=== PATIENT | female | born 1985 | race Caucasian/White ===

== ENCOUNTER 2020-03-16 16:53 | Emergency (ER) | payer OTHER, SELFPAY ==
[2020-03-16 16:56] VITALS: BP 143/87; PULSE 84; RESP 16; TEMP 36.9; O2SAT 98; BMI 45.7
--- NOTE | 2020-03-16 17:13 | W.ED.HA ---
HPI - Headache General: Chief Complaint: Headache Stated Complaint: BAGLEY Time Seen by Provider: 03/16/20 17:13 Source: patient Mode of arrival: ambulatory Limitations: no limitations History of Present Illness: HPI Narrative: Patient comes in today for complaints of headache starting yesterday. Patient reports that she has a history of migraines and has had treatment at home with sumatriptan. Patient reports this morning she felt a little better and thought she may be improving and went to take a shower then suddenly has recurrence of the headache with nausea and dizziness. Symptoms have improved but patient continues to have headache at this time. Patient takes topiramate for prophylaxis. Patient has sumatriptan and promethazine for abortive therapy. Patient also takes routinely medications omeprazole and citalopram. Patient appears well. Patient appears in mild to moderate discomfort. MD elicited complaint: migraine Pertinent past history: migraines Onset (ago): day(s) Onset description: suddenly Location: retro-orbital Severity: moderate Quality & Timing: squeezing Exacerbating factors: light Relieving factors: nothing Context: occurred at rest Associated symptoms: Reports nausea Review of Systems General: Reports: 10 or more systems reviewed and unremarkable except in HPI and below GI: Reports: nausea Neuro: Reports: headache PFSH ED PFSH: Social History Smoking and tobacco status: never smoked Female Reproductive History: Date of last menstrual period: 03/15/20 Physical Exam Const: COMMON NORMALS: no apparent distress and oriented x3 GENERAL APPEARANCE: cooperative HENMT: COMMON NORMALS: normocephalic, TM's normal bilaterally and external nose normal HEAD & SCALP: normal to inspection and normocephalic NOSE: external nose normal TYMPANIC MEMBRANE: TM's normal bilaterally MOUTH: oral and palatal mucosa normal THROAT: posterior oropharynx normal Eye: GENERAL EYE: normal appearance of both eyes Neck/C-Spine: COMMON NORMALS: full ROM (no nuchal rigidity) Lymph: LYMPHATIC: no lymphadenopathy noted Chest: COMMONS NORMALS: inspection of chest normal Resp: COMMON NORMALS: normal respiratory effort EFFORT & INSPECTION: Yes able to speak in complete sentences Cardio: COMMON NORMALS: regular rate and regular rhythm RATE: regular rate RHYTHM: regular rhythm GI: COMMON NORMALS: non-tender : COMMON NORMALS: Yes no CVA tenderness BLADDER/KIDNEY EXAM: Yes no CVA tenderness Back/Pelvis: COMMON NORMALS: no CVA tenderness and thoracic and lumbar spine normal to inspection Extremity: COMMON NORMALS: normal to inspection Neuro: COMMON NORMALS: oriented x3 and moves all extremities Psych: COMMON NORMALS: mental status grossly normal and cooperative Skin: COMMON NORMALS: no rashes or lesions noted GENERAL SKIN EXAM: no rashes or lesions noted Course Vital Signs: Vital signs: Vital Signs Temperature 98.4 F 03/16/20 16:56 Pulse Rate 84 03/16/20 16:56 Respiratory Rate 16 03/16/20 16:56 Blood Pressure 143/87 03/16/20 16:56 Pulse Oximetry 98 03/16/20 16:56 MDM - Headache MDM Narrative: Medical decision making narrative: Patient comes in today with complaints of headache. Patient reports that headache started yesterday and she has been unable to get control of the home with her routine therapies. Exam notes no focal neural deficits. No nuchal rigidity. Respirations are even lungs are clear to auscultation. Vital signs are normal. Differential diagnosis includes but not limited to migraine headache, tension headache, malingering. Patient was treated in the emergency department with 1 L of IV fluids, 10 mg of Reglan, 15 mg ketorolac, 25 mg diphenhydramine, and 10 mg of dexamethasone. Patient had resolution of headache. Reviewed post treatment care and recommendations for follow-up. Patient reported understanding agreed to plan. Discharge Plan Discharge Patient Disposition: Home, Self-Care Clinical Impression: Migraine Qualifiers: Migraine type: unspecified Status migrainosus presence: without status migrainosus Intractability: not intractable Qualified Code(s): G43.909 - Migraine, unspecified, not intractable, without status migrainosus Condition: Stable Prescriptions: No Action sumatriptan succinate 50 mg tablet 50 mg PO PRN RF: 0 Celexa 20 mg Tablet 20 mg PO DAILY RF: 0 promethazine 25 mg tablet 25 mg PO PRN RF: 0 norethindrone (contraceptive) 0.35 mg tablet 0.35 mg PO DAILY RF: 0 Topamax 100 mg Tablet 100 mg PO BID RF: 0 Prilosec OTC 20 mg Tablet,Delayed Release (Dr/Ec) 40 mg PO DAILY RF: 0 Discharge Orders: Discharge Order (Routine); Ordered 03/16/20 Ordered By: Leno Bustamante Referrals: Ashly Campbell MD [Family Provider] - Discharge Diet: Usual diet Discharge Activity: Increase activity as tolerated Patient Instructions: Acute Headache (ED) Activity Restrictions/Additional Instructions: Home and rest. Continue routine medications as directed. Follow-up with primary care regarding other abortive therapies. Drink plenty of water and return to the ER as needed. Coding Level of Care Code ED Special Education Paraeducator for Reema Fwd Exam Comprehensive
[2020-03-16] MEDS: metoclopramide 5 mg/mL SDV 2 mL 10 MG IVP (17:42)
[2020-03-16] MEDS: ketorolac 30 mg/mL INJ 15 MG IVP (17:43)
[2020-03-16] MEDS: dexamethasone 10 mg/mL INJ IVP (17:44)
[2020-03-16] MEDS: diphenhydrAMINE 50 mg/mL SDV 1mL 25 MG IVP (17:44)
[2020-03-16] MEDS: sodium chloride 0.9% 1,000 ML 999 ML IV (17:45)
[2020-03-16 19:08] VITALS: BP 125/85; PULSE 75; RESP 16; O2SAT 98
== END 2020-03-16 19:08 | disposition home or self-care (01) ==
PROVIDERS: Emergency Provider Nurse Practitioner Family; Family Provider Family Medicine
DX: G43.909 Migraine, unspecified, not intractable, without status migrainosus (principal)
CPT/HCPCS: 12345; 96361; 96374; 96375; 99282; 99284; J1100; J1200; J1885; J2765; J7030

== ENCOUNTER 2021-04-15 17:33 | Outpatient (CLI) | payer OTHER, SELFPAY | END 2021-04-15 17:34 | disposition home or self-care (01) | LOC: SPT 17:34 | PROVIDERS: Family Provider Family Medicine; PCP Family Medicine; Visit Provider Orthopaedic Surgery | DX: Z46.89 Encounter for fitting and adjustment of other specified devices (principal); S62.621D Displaced fracture of middle phalanx of left index finger, subsequent encounter for fracture with routine healing; S63.92XD Sprain of unspecified part of left wrist and hand, subsequent encounter; X58.XXXD Exposure to other specified factors, subsequent encounter | CPT/HCPCS: 97760; L3984 ==

== ENCOUNTER 2021-05-04 19:46 | Emergency (ER) | payer OTHER, SELFPAY ==
[2021-05-04 19:49] VITALS: BP 107/69; RESP 18; TEMP 37.2; O2SAT 97; BMI 47.2
--- NOTE | 2021-05-04 20:11 | CTR_ITS ---
PROCEDURE INFORMATION: Exam: CT Abdomen And Pelvis With Contrast Exam date and time: 05/04/2021 8:11 PM Age: 35 years old Clinical indication: Abdominal pain; Localized; Right lower quadrant (rlq); Patient HX: Rlq pain TECHNIQUE: Imaging protocol: Computed tomography of the abdomen and pelvis with contrast. Radiation optimization: All CT scans at this facility use at least one of these dose optimization techniques: automated exposure control; mA and/or kV adjustment per patient size (includes targeted exams where dose is matched to clinical indication); or iterative reconstruction. Contrast material: OMNI 300; Contrast volume: 95 ml; Contrast route: INTRAVENOUS (IV); COMPARISON: No relevant prior studies available. RADIATION DOSE METRICS: Total DLP (mGy-cm): 1857.51 FINDINGS: Mediastinal space: A small hiatal hernia is present. Liver: The liver measures 21.8 cm in length. The liver is homogeneous in density. Gallbladder and bile ducts: Normal. No calcified stones. No ductal dilation. Pancreas: Normal. No ductal dilation. Spleen: Normal. No splenomegaly. Adrenal glands: Normal. No mass. Kidneys and ureters: There is no evidence of hydronephrosis. There is no evidence of renal calcifications. No calculi are identified in the ureters or bladder. Stomach and bowel: There is moderately excessive colonic stool content. There is no evidence of intestinal perforation or obstruction. There is no evidence of colitis/diverticulitis. Appendix: A normal appendix is identified. Intraperitoneal space: Unremarkable. No free air. No significant fluid collection. Vasculature: Multiple phleboliths are noted in the pelvis. Some of the phleboliths are very close to the distal ureters. The aorta is normal. Lymph nodes: Unremarkable.No enlarged lymph nodes. Urinary bladder: There is nonspecific bladder wall thickening. This may be related to incomplete distention. Reproductive: There is a 1.8 cm collapsing right ovarian cyst. Uterus and left ovary are unremarkable. Bones/joints: Unremarkable. No acute fracture. Soft tissues: There is a fat-containing umbilical hernia. CT/CT abdomen pelvis w con* [id number] IMPRESSION: 1. There is a 1.8 cm collapsing right ovarian cyst. 2. No additional acute abnormality. No obstructing calculi or hydronephrosis. No bowel thickening or inflammatory changes. Incidental multiple phleboliths in the pelvis. Radiation Dose CTDIVOL = (mGy): DLP = 1857.51 (mGy-cm)
--- NOTE | 2021-05-04 20:12 | ED_ITS ---
HPI - Abdominal Pain General: Chief Complaint: Abdominal Pain Stated Complaint: RLQ pain Time Seen by Provider: 05/04/21 20:11 History of Present Illness: HPI narrative: Patient comes in for right lower quadrant abdominal pain x1 week. Patient reports movement aggravates the pain. Patient denies any fever. Patient reports no nausea vomiting or diarrhea. Laboratory values at [facility] were negative. Urinalysis did not show any blood or . Patient appears in mild to moderate pain. Patient is guarded and right lower quadrant. Related Data: Date of Last Menstrual Period: 03/15/20 Review of Systems General: Reports: 10 or more systems reviewed and unremarkable except in HPI and below GI: Reports: abdominal pain PFSH ED PFSH: Social History Smoking and tobacco status: never smoked Female Reproductive History: Date of last menstrual period: 03/15/20 Physical Exam Const: COMMON NORMALS: no acute distress and patient oriented x3 GENERAL APPEARANCE: cooperative HENMT: COMMON NORMALS: normocephalic, TM's normal bilaterally and Normal external nose present HEAD & SCALP: normal to inspection and normocephalic NOSE: Normal external nose present TYMPANIC MEMBRANE: TM's normal bilaterally MOUTH: Normal oral and palatal mucosa present THROAT: posterior oropharynx normal Eye: GENERAL EYE: appearance normal, both eyes and all related structures Neck/C-Spine: COMMON NORMALS: full ROM Lymph: LYMPHATIC: no lymphadenopathy noted Chest: COMMONS NORMALS: normal inspection of the chest Resp: COMMON NORMALS: normal respiratory effort EFFORT & INSPECTION: Yes able to speak in complete sentences Cardio: COMMON NORMALS: regular rate and regular rhythm RATE: regular rate RHYTHM: regular rhythm GI: COMMON NORMALS: Soft to palpation AUSCULTATION: Yes normoactive bowel sounds PALPATION: Yes Soft to palpation and Yes Tenderness to palpation present (GI) Details: RLQ : COMMON NORMALS: Yes no CVA tenderness BLADDER/KIDNEY EXAM: Yes no CVA tenderness Back/Pelvis: COMMON NORMALS: no CVA tenderness and thoracic and lumbar spine normal to inspection Extremity: COMMON NORMALS: normal to inspection Neuro: COMMON NORMALS: patient oriented x3 and moves all extremities Psych: COMMON NORMALS: mental status grossly normal and cooperative Skin: COMMON NORMALS: no rashes or lesions noted GENERAL SKIN EXAM: no rashes or lesions noted Course Vital Signs: Vital signs: Vital Signs Temperature 98.9 F 05/04/21 19:49 Pulse Rate 61 05/04/21 20:58 Respiratory Rate 18 05/04/21 20:58 Blood Pressure 113/79 05/04/21 20:58 Pulse Oximetry 98 05/04/21 20:58 MDM - Abdominal Pain MDM Narrative: Medical decision making narrative: Patient comes in for abdominal pain. Patient reports increased pain and discomfort over the last week in the right lower quadrant. Patient reports that nothing improves the pain. Exam notes tenderness in the right lower quadrant. Bowel sounds are present. Vital signs are normal. Differential diagnosis includes but not limit ed to appendicitis, urinary tract infection, ovarian cyst, renal calculi. CT noted a 1.8 cm ovarian cysts that is collapsing. No other signs of acute illness was noted. Urinalysis was clear. Negative test. Feel the patient probably has a resolving ovarian cyst that has probably ruptured and causing some pain in the pelvic area. Semiconductor Packages Sealer's medication to help with pain encourage plenty of fluids and follow-up with primary care for further instruction. Patient reported understanding. Lab Data: Labs: Lab Results 05/04/21 05/04/21 Range/Units 20:54 20:54 Urine Color Yellow (Yellow) Urine Appearance Cloudy (CLEAR) Urine pH 7 (5-7) Ur Specific Gravit y 1.015 (1.005-1.030) Urine Protein Neg (Negative) Urine Glucose (UA) Norm (Normal) Urine Ketones Negative (Negative) Urine Blood Neg (Negative) Urine Nitrate Negative (Negative) Urine Bilirubin Neg (Negative) Urine Urobilinogen Norm (Negative) mg/dL Ur Leukocyte Cecelia ase Negative (Negative) Urine RBC 0-4 H (0-2) /hpf Urine WBC None (0-5) /hpf Ur Squamous Epith Cells 5-10 H (0-5) /hpf Amorphous Sediment 3+ /hpf Urine Bacteria 1+ H (NONE) /hpf Urine HCG, Qual Negative (Negative) Discharge Plan Discharge Patient Disposition: Home Clinical Impression: Ovarian cyst Qualifiers: Laterality: right Qualified Code(s): N83.201 - Unspecified ovarian cyst, right side Condition: Stable Prescriptions: New hydrocodone-acetaminophen 5-325 mg tablet 1 tab PO Q6H PRN (Reason: pain (scale score 7-10)) Qty: 7 RF: 0 No Action (DME) Fast Form radial gutter splint See Rx Instructions .ROUTE .MEDSUPPLY Qty: 1 RF: 0 sumatriptan succinate 50 mg tablet 50 mg PO PRN RF: 0 Celexa 20 mg Tablet 20 mg PO DAILY RF: 0 promethazine 25 mg tablet 25 mg PO PRN RF: 0 norethindrone (contraceptive) 0.35 mg tablet 0.35 mg PO DAILY RF: 0 Topamax 100 mg Tablet 100 mg PO BID RF: 0 Prilosec OTC 20 mg Tablet,Delayed Release (Dr/Ec) 40 mg PO DAILY RF: 0 Discharge Orders: Discharge ED (Routine); Ordered 05/04/21 Ordered By: Leno Bustamante Referrals: Ashly Campbell MD [Primary Care Provider] - Discharge Diet: Usual diet Discharge Activity: Increase activity as tolerated Patient Instructions: Ovarian Cyst (ED), Opioid Safety Activity Restrictions/Additional Instructions: You have a 1.8 cm ovarian cyst that is collapsing. This often will cause pelvic pain. Sometimes it will cause referred pain up into the abdomen. The remainder of your CT scan was normal. And the rest of your labs were normal. I would recommend you drink plenty of water and plenty of fluids. Use acetaminophen and ibuprofen to control pain. Use hydrocodone for breakthrough pain. Follow-up with primary care or HOMEOWNER ASSOCIATION MANAGER for further evaluation and consideration of other treatment. Coding Level of Care Code ED Chlorine Cell Tender for Naig Fwd Exam Comprehensive
[2021-05-04 20:58] VITALS: BP 113/79; PULSE 61; RESP 18; O2SAT 98
[2021-05-04] MEDS: sodium chloride 0.9% 500 ML 999 ML IV (21:03)
[2021-05-04] MEDS: iohexol 300 mg/mL 100 mL Btl IV (21:08)
[2021-05-04 22:09] LABS: Add Urine Microscopic? YES; Bilirubin Urine Neg (Negative); Blood Urine Neg (Negative); Glucose Urine UA Norm (Normal); Ketones Urine Negative (Negative); Leukocyte Esterase Urine Negative (Negative); Nitrate Urine Negative (Negative); Protein Urine Neg (Negative); Specific Gravity, Urine 1.015 (1.005-1.030); Urine Appearance Cloudy (CLEAR); Urine Color Yellow (Yellow); Urobilinogen Urine Norm (Negative); pH Urine 7 (5-7)
[2021-05-04 22:12] LABS: Add Urine Culture? No; Amorphous Sediment Urine 3+ /hpf; Bacteria Urine 1+ /hpf; RBC Urine 0-4 /hpf (0-2)
[2021-05-04] MEDS: HYDROcodone-acetaminophen 5-325 mg Tablet 1 TAB PO (22:25)
== END 2021-05-04 22:41 | disposition home or self-care (01) ==
PROVIDERS: Emergency Provider Nurse Practitioner Family; PCP Family Medicine
DX: N83.201 Unspecified ovarian cyst, right side (principal)
CPT/HCPCS: 36415; 74177; 80053; 81001; 81025; 83690; 84703; 85025; 99283; J7040; Q9967

== ENCOUNTER → 2022-11-19 14:01 | Outpatient (BNVA) | payer OTHER, SELFPAY | PROVIDERS: PCP Family Medicine; Visit Provider Family Medicine | DX: Z76.89 Persons encountering health services in other specified circumstances (principal); G62.9 Polyneuropathy, unspecified; H53.139 Sudden visual loss, unspecified eye | CPT/HCPCS: 85025 ==

== ENCOUNTER → 2022-11-23 12:11 | Outpatient (BNVA) | payer OTHER, SELFPAY | PROVIDERS: PCP Family Medicine; Visit Provider Family Medicine | DX: Z76.89 Persons encountering health services in other specified circumstances (principal); G62.9 Polyneuropathy, unspecified; H53.139 Sudden visual loss, unspecified eye; G43.709 Chronic migraine without aura, not intractable, without status migrainosus | CPT/HCPCS: 85025 ==

== ENCOUNTER 2023-01-14 16:05 | Outpatient (CLI) | payer OTHER, SELFPAY ==
--- NOTE | 2023-01-14 16:00 | MR_ITS ---
WS: [id number] MRI BRAIN WITH AND WITHOUT CONTRAST HISTORY: Vision loss, polyneuropathy COMPARISON: None available. TECHNIQUE: Multiplanar imaging performed through the brain with MultiHance 20 ml's IV. No acute infarcts are seen. Fernandez-white matter differentiation is well preserved. No infarct or small vessel ischemic disease. No susceptibility artifacts or prior lacunar infarcts. Ventricles and extra-axial spaces are normal. Clivus and pituitary gland are normal. Visualized posterior fossa and brainstem are also normal. Postcontrast images are negative for masses or vascular malformations. Dural venous sinuses are normal. Paranasal sinuses: Well aerated with no significant disease. Mastoid air cells: Normal. Calvarium and scalp: Normal. MR/MR head wo/w con [id number] IMPRESSION: 1. Normal MRI brain with contrast. 2. No small vessel ischemic disease or demyelination. No mass or infarct.
[2023-01-14] MEDS: gadobenate dimeglumine 20 mL vial IV (16:44)
== END 2023-01-14 16:06 | disposition home or self-care (01) ==
LOC: RAD 16:08
PROVIDERS: PCP Family Medicine; Visit Provider Family Medicine
DX: G62.9 Polyneuropathy, unspecified (principal); H53.139 Sudden visual loss, unspecified eye
CPT/HCPCS: 70553; A9577

== ENCOUNTER 2023-05-16 20:00 | Outpatient (CLI) | payer OTHER, SELFPAY | END 2023-05-16 20:01 | disposition home or self-care (01) | LOC: SLEEP 05-17 05:34 | PROVIDERS: PCP Family Medicine; Visit Provider Family Medicine | DX: G47.33 Obstructive sleep apnea (adult) (pediatric) (principal); G47.52 REM sleep behavior disorder; G47.00 Insomnia, unspecified; R40.0 Somnolence | CPT/HCPCS: 95810 ==

== ENCOUNTER 2024-01-16 15:13 | Outpatient (CLI) | payer OTHER, SELFPAY ==
--- NOTE | 2024-01-16 15:28 | MM_ITS ---
WS: [id number] VIEWS: MLO and CC views both breasts. 3D digital tomosynthesis is also included in this exam. No priors.. Findings: There was no sign of mass, architectural distortion or suspicious calcification in either breast. The re are scattered areas of fibroglandular density Impression: MM/[place] [id number] BI-RADS: 1-Negative FOLLOW-UP: 1 Year Follow-up This mammogram was also analyzed by the Computer Aided Detection System R2 Imag e Flight Software Test Engineer.
== END 2024-01-16 15:14 | disposition home or self-care (01) ==
LOC: RAD 15:14
PROVIDERS: PCP Family Medicine; Visit Provider Family Medicine
DX: Z12.31 Encounter for screening mammogram for malignant neoplasm of breast (principal); R92.323 Mammographic fibroglandular density, bilateral breasts
CPT/HCPCS: 77063; 77067

== ENCOUNTER 2024-05-27 11:24 | Inpatient (IN) | payer OTHER, SELFPAY ==
[2024-05-27] VITALS (7 sets, daily range): BP systolic 95–138; BP diastolic 61–88; PULSE 44–64; RESP 13–19; TEMP 36.4–36.6; O2SAT 97–100; BMI 33.8
--- NOTE | 2024-05-27 11:51 | XRR_ITS ---
PROCEDURE INFORMATION: Exam: XR Abdomen Exam date and time: 05/27/2024 12:01 PM Age: 38 years old Clinical indication: Abdominal pain; Generalized TECHNIQUE: Imaging protocol: Radiologic exam of the abdomen. Views: 2 Views. Upright and supine views. COMPARISON: CR XR KUB [id number] 04/26/2023 2:01 PM FINDINGS: Gastrointestinal tract: Normal. No bowel dilation. Intraperitoneal space: Normal. No free air. Bones/joints: Unremarkable for age. XR/XR acute abdomen series [id number] IMPRESSION: No acute findings.
[2024-05-27 12:12] LABS: Eosinophils # 0.1 10^3/uL (0.0-0.8); Eosinophils % 2.9 %; Hematocrit 43.6 % (36-47); Lymphocytes # 0.9 10^3/uL (0.8-4.8); Lymphocytes % 28.8 %; Mean Corpuscular HGB Conc 35.3 g/dL (30-55); Mean Corpuscular Hemoglobin 29.1 pg (27-33); Mean Corpuscular Volume 82.4 fl (85-98); Mean Platelet Volume 11.5 fL (7.4-10.4); Monocytes # 0.4 10^3/uL (0.2-0.9); Monocytes % 12.9 %; Neutrophils # 1.68 10^3/uL (1.8-7.7); Neutrophils % 54.4 %; Nucleated Red Blood Cells % 0 %; Platelet Count 197 10^3/cmm (157-399); Red Blood Count 5.29 10^6/uL (3.85-5.65); Red Cell Distribution Width 17.6 % (12.1-15.1); White Blood Count 3.09 10^3/uL (3.29-11.43)
[2024-05-27] MEDS: sodium chloride 0.9% 1,000 ML 999 ML IV ×2 (12:13→13:46)
[2024-05-27] MEDS: ondansetron 2 mg/ML SDV 2 mL 4 MG IVP ×2 (12:16→22:26)
[2024-05-27 12:22] LABS: Alanine Aminotransferase 30 U/L (0-33); Albumin Level 3.9 g/dL (3.5-5.2); Alkaline Phosphatase 45 U/L (35-105); Anion Gap 24.1 (5-19); Aspartate Amino Transferase 38 U/L (0-32); Blood Urea Nitrogen 6 mg/dL (6-20); Calcium 8.6 mg/dL (8.5-10.5); Carbon Dioxide 25 mmol/L (22-29); Chloride 92 mmol/L (98-107); Creatinine Clr Calc Pharmacy 93.0892; Globulin 2.7 g/dL (1.3-4.6); Glomerular Filtration Rate 79.4 mL/min (90-130); Glucose 83 mg/dL (65-115); Osmolality Calculated 285 mOsm/kg (285-295); Sodium 139 mmol/L (136-145); Total Bilirubin 0.5 mg/dL (0.15-1.2); Total Protein 6.6 g/dL (6.6-8.7)
--- NOTE | 2024-05-27 12:27 | ECG_ITS ---
[facility] Test Date: 2024-05-27 Pat Name: Talisha Medeiros Department: Room: Gender: Female Measurement Psychologist: : 1985 Requested By: Connie Robert Order Number: [id number] Ananya MD: Randy Neal M.D. Measurements Intervals [place] Rate: 48 P: 55 OH: 137 QRS: 48 QRSD: 102 T: 54 QT: 465 QTc: 420 Interpretive Statements SINUS BRADYCARDIA NONSPECIFIC T-WAVE ABNORMALITY No previous ECG available for comparison Electronically Signed On 05-27-2024 19:19:38 CDT by Randy Neal M.D. [id number]
[2024-05-27 12:28] LABS: Potassium 2.1 mmol/L (3.5-5.1)
--- NOTE | 2024-05-27 12:34 | CTR_ITS ---
PROCEDURE INFORMATION: Exam: CT Abdomen And Pelvis With Contrast Exam date and time: 05/27/2024 1:08 PM Age: 38 years old Clinical indication: Vomiting; Prior surgery; Surgery date: 1-6 months; Surgery type: Gastric sleeve 4 months ago hernia; Additional info: Vomiting, history of gastric sleeve TECHNIQUE: Imaging protocol: Computed tomography of the abdomen and pelvis with contrast. Radiation optimization: All CT scans at this facility use at least one of these dose optimization techniques: automated exposure control; mA and/or kV adjustment per patient size (includes targeted exams where dose is matched to clinical indication); or iterative reconstruction. Contrast material: OMNI 350; Contrast volume: 100 ml; Contrast route: INTRAVENOUS (IV); COMPARISON: CT abdomen pelvis w con* [id number] 05/04/2021 9:05 PM RADIATION DOSE METRICS: Total DLP (mGy-cm): 836.64 FINDINGS: Lungs: Lung bases are clear as visulized. Liver: Fatty infiltration suspected. Focal hypodensity in left lobe adjacent to falciform ligament fissure is likely from focal increased fatty infiltration compared to adjacent liver parenchyma. No discrete mass identified. Gallbladder and biliary ducts: Minimally distended gallbladder. No wall thickening or pericholecystic edema. No biliary ductal dilatation. No calcified gallstones. Pancreas: Normal. No ductal dilation. Spleen: Normal. No splenomegaly. Adrenal glands: Normal. Kidneys and ureters: Normal. No hydronephrosis. Stomach and bowel: Postop changes of the stomach noted. Postop changes of jejunal loops in left abdomen suspected. No obstruction or acute inflammation. Appendix: Not identified. Intraperitoneal space: Unremarkable. No free air. No significant fluid collection. Vasculature: No abdominal aortic aneurysm. Lymph nodes: No enlarged lymph nodes. Urinary bladder: Unremarkable as visualized. Reproductive: Unremarkable as visualized. Bones/joints: No acute fracture. Soft tissues: Unremarkable. CT/CT abdomen pelvis w con* [id number] IMPRESSION: No acute findings.
--- NOTE | 2024-05-27 12:34 | ED_ITS ---
HPI - Nausea/Vomiting/Diarrhea 2 General: Chief complaint: Nausea/Vomiting/Diarrhea Stated complaint: trouble eating or drinking Time Seen by Provider: 05/27/24 11:50 History of Present Illness: 38-year-old female with a history of obe sity and gastric bypass that she had done in [place] about 4 months ago who presents emergency room with nausea vomiting and weakness. Says this has been kind of off and on since the surgery but much worse over the last 3 to 4 weeks. She says she feels very fatigued with nothing focal. Says she just been having trouble keeping foods down. She came to emergency room because she was concerned she might be dehydrated. No focal abdominal pain. No diarrhea. No altered mental status. No fevers. Review of Systems 2 Narrative: Constitutional symptoms: Negative except as documented in HPI. Skin symptoms: Negative except as documented in HPI. Eye symptoms: Negative except as documented in HPI. ENMT symptoms: Negative except as documented in HPI. Respiratory symptoms: Negative except as documented in HPI. Cardiovascular symptoms: Negative except as documented in HPI. Gastrointestinal symptoms: Negative except as documented in HPI. Genitourinary symptoms: Negative except as documented in HPI. Musculoskeletal symptoms: Negative except as documented in HPI. Neurologic symptoms: Negative except as documented in HPI. Psychiatric symptoms: Negative except as documented in HPI. Endocrine symptoms: Negative except as documented in HPI. PFSH ED 2 PFSH: Social History Smoking and tobacco/nicotine status: never used tobacco/nicotine Alcohol intake: current Alcohol intake frequency: holidays/special occasions only Substance/Drug Use: never Adopted: No Caregiver/support person: No Lives independently: No Household members: spouse Housing: House Marital status: Number of children: 2 Highest education level completed: Associate Degree: Occupational, Technical, Vocational Program service: No Current occupational status: employed Current occupational exposures/hazards: No Pets and animals: No Sexually active: Yes Do you think of yourself as: Straight/Heterosexual Current gender identity: Female Physical Exam 2 Narrative: EXAM NARRATIVE: General: Alert, no acute distress. Skin: Warm, dry. Head: Normocephalic, atraumatic. Neck: Supple, trachea midline. Eye: Extraocular movements are intact. Ears, nose, mouth and throat: Dry oral mucosa Cardiovascular: Regular, bradycardic, normal peripheral perfusion. Respiratory: Lungs are clear to auscultation, respirations are non-labored, breath sounds are equal, Symmetrical chest wall expansion. Gastrointestinal: Soft, Nontender, Non distended Musculoskeletal: Normal ROM, no deformity. Neurological: Alert and oriented, No focal neurological deficit observed. Psychiatric: Cooperative, appropriate mood & affect. Course 2 Vital Signs: Vital signs: Vital Signs Temperature 97.6 F 05/27/24 11:37 Pulse Rate 54 L 05/27/24 14:00 Respiratory Rate 17 05/27/24 14:00 Blood Pressure 110/61 05/27/24 14:00 Pulse Oximetry 98 05/27/24 14:00 Oxygen Delivery Me thod Room Air 05/27/24 13:00 MDM - Nausea/Vomiting/Diarrhea Medical Decision Making Medical decision making: Differential diagnosis for this patient with nausea and vomiting including but not limited to and based on the above HPI, review of systems and physical exam: Urinary tract infection. Appendicitis. Cholecystis. colitis. small bowel obstruction. crohn's flare. pancreatitis. gastritis. peptic ulcer. cyclic vomiting. Viral illness. Influenza. COVID. - Workup - labwork and imaging ordered to evaluate, rule in and rule out above pathologies. EKG: Time 12:35 PM. Rate 48. Sinus bradycardia, No ST-T changes, no ectopy, normal [place] & QRS intervals, This was reviewed and interpreted by myself the ER physician at 12:40 PM. Lab Review: Laboratory results were reviewed and interpreted by myself the emergency room physician. Some leukopenia. No anemia. BUN and creatinine are normal at 6 and 0.8. Her potassium is a significantly low at 2.1. Urine concentrated with ketones which would indicate dehydration. Also a few whites on giving some Rocephin for possible UTI. CT of the abdomen pelvis with contrast: No obvious acute abnormalities. Postop changes are noted at the stomach with no signs of obstruction or inflammation. Gallbladder is mildly distended with no signs of infection. This was reviewed and interpreted by myself the emergency room physician. I also reviewed the radiology report. Consultation: I spoke with Dr. Rodriguez with the hospitalist service. He agrees to admission for further hydration and repeat potassium levels. I reviewed the patient's medical record. Reexamination: Patient remained stable. No altered mental status. No focal motor deficits. She says she feels a little bit better after fluids. No increased work of breathing. She still a little bit bradycardic. Assessment and plan: Hypokalemia Nausea and vomiting Dehydration Urinary tract infection -80 mill equivalents IV potassium and 40 mill equivalents oral. 2 g IV magnesium -IV Pepcid ?IV Zofran ? 2 L normal saline bolus. -IV Rocephin for probable early urinary tract infection -I discussed the patient with the hospitalist on-call who is admitting the patient. - Discussed findings and plan with patient. Answered any questions. - All laboratory values were reviewed and interpreted personally by myself, the ER physician - All imaging was reviewed and interpreted personally by myself, the ER physician. - Evaluation and treatment of this problem were appropriate in the emergency setting Lab Data 05/27/24 11:59 05/27/24 11:59 Radiology Impressions Chest/Abdomen X-ray 05/27/24 11:51 IMPRESSION: No acute findings. Abdomen/Pelvis CT 05/27/24 12:34 IMPRESSION: No acute findings. Laboratory Results WBC 3.09 10^3/uL (3.29-11.43) L 05/27/24 11:59 RBC 5.29 10^6/uL (3.85-5.65) 05/27/24 11:59 Hgb 15.40 g/dL (11.27-16.99) 05/27/24 11:59 Hct 43.6 % (36-47) 05/27/24 11:59 MCV 82.4 fl (85-98) L 05/27/24 11:59 MCH 29.1 pg (27-33) 05/27/24 11:59 MCHC 35.3 g/dL (30-55) 05/27/24 11:59 RDW 17.6 % (12.1-15.1) H 05/27/24 11:59 Plt Count 197 10^3/cmm (157-399) 05/27/24 11:59 MPV 11.5 fL (7.4-10.4) H 05/27/24 11:59 Neut % (Auto) 54.4 % 05/27/24 11:59 Lymph % (Auto) 28.8 % 05/27/24 11:59 [place] % (Auto) 12.9 % 05/27/24 11:59 Eos % (Auto) 2.9 % 05/27/24 11:59 Baso % (Auto) 1.0 % 05/27/24 11:59 Neut # (Auto) 1.68 10^3/uL (1.8-7.7) L 05/27/24 11:59 Lymph # (Auto) 0.9 10^3/uL (0.8-4.8) 05/27/24 11:59 [place] # (Auto) 0.4 10^3/uL (0.2-0.9) 05/27/24 11:59 Eos # (Auto) 0.1 10^3/uL (0.0-0.8) 05/27/24 11:59 Baso # (Auto) 0.0 10^3/uL (0.0-0.1) 05/27/24 11:59 Nucleated RBC % (auto) 0 % 05/27/24 11:59 Nucleated RBCs # 0.0 /100WBC 05/27/24 11:59 Sodium 139 mmol/L (136-145) 05/27/24 11:59 Potassium 2.1 mmol/L (3.5-5.1) L* 05/27/24 11:59 Chloride 92 mmol/L (98-107) L 05/27/24 11:59 Carbon Dioxide 25 mmol/L (22-29) 05/27/24 11:59 Anion Gap 24.1 (5-19) H 05/27/24 11:59 BUN 6 mg/dL (6-20) 05/27/24 11:59 Creatinine 0.8 mg/dL (0.5-0.9) 05/27/24 11:59 GFR Calculation 79.4 mL/min (90-130) L 05/27/24 11:59 Glucose 83 mg/dL (65-115) 05/27/24 11:59 Calculated Osmolality 285 mOsm/kg (285-295) 05/27/24 11:59 Calcium 8.6 mg/dL (8.5-10.5) 05/27/24 11:59 Phosphorus 2.7 mg/dL (2.5-4.5) 05/27/24 11:59 Magnesium 2.2 mg/dL (1.7-2.3) 05/27/24 11:59 Total Bilirubin 0.5 mg/dL (0.15-1.2) 05/27/24 11:59 AST 38 U/L (0-32) H 05/27/24 11:59 ALT 30 U/L (0-33) 05/27/24 11:59 Alkaline Phosphatase 45 U/L (35-105) 05/27/24 11:59 Total Protein 6.6 g/dL (6.6-8.7) 05/27/24 11:59 Albumin 3.9 g/dL (3.5-5.2) 05/27/24 11:59 Globulin 2.7 g/dL (1.3-4.6) 05/27/24 11:59 Urine Color Dark yellow (Yellow) A 05/27/24 12:20 Urine Appearance Cloudy (CLEAR) A 05/27/24 12:20 Urine pH 6 (5-7) 05/27/24 12:20 Ur Specific [place] 1.015 (1.005-1.030) 05/27/24 12:20 Urine Protein 1+ (Negative) H 05/27/24 12:20 Urine Glucose (UA) Norm (Normal) 05/27/24 12:20 Urine Ketones 3+ (Negative) H 05/27/24 12:20 Urine Blood 2+ (Negative) H 05/27/24 12:20 Urine Nitrate Negative (Negative) 05/27/24 12:20 Urine Bilirubin 1+ (Negative) H 05/27/24 12:20 Urine Urobilinogen 4 mg/dL (Negative) H 05/27/24 12:20 Ur Leukocyte Esterase 1+ (Negative) H 05/27/24 12:20 Urine RBC 5-10 /hpf (0-2) H 05/27/24 12:20 Urine WBC 10-15 /hpf (0-5) H 05/27/24 12:20 Ur Squamous Epith Cells 15-25 /hpf (0-5) H 05/27/24 12:20 Amorphous Sediment Not Reportable 05/27/24 12:20 Urine Bacteria 2+ /hpf (NONE) H 05/27/24 12:20 All radiology interpretation(s) finalized by discharge Discharge Plan Discharge Patient Disposition: Placed in Observation Clinical Impression: Hypokalemia, Dehydration, Vomiting, H/O gastric sleeve, Urinary tract infection Coding Level of Care Code ED Final Assembly Inspector for Chg Fwd
[2024-05-27 12:37] LABS: Add Urine Culture? No; Bacteria Urine 2+ /hpf; Bilirubin Urine 1+ (Negative); Blood Urine 2+ (Negative); Glucose Urine UA Norm (Normal); Ketones Urine 3+ (Negative); Leukocyte Esterase Urine 1+ (Negative); Nitrate Urine Negative (Negative); Protein Urine 1+ (Negative); Specific Gravity, Urine 1.015 (1.005-1.030); Squamous Epithelial Cell Urine 15-25 /hpf (0-5); Urine Appearance Cloudy (CLEAR); Urine Color Dark Yellow (Yellow); Urobilinogen Urine 4 mg/dL (Negative); pH Urine 6 (5-7)
[2024-05-27] MEDS: potassium chloride ER 20 mEq Tablet 40 MEQ PO (12:43)
[2024-05-27] MEDS: magnesium sulfate premix 2 GM/50 ML PIGGYBACK IV (12:46)
[2024-05-27 12:55] LABS: Magnesium 2.2 mg/dL (1.7-2.3); Phosphorus 2.7 mg/dL (2.5-4.5)
[2024-05-27] MEDS: iohexol 350 mg/mL 500 mL Btl (per mL) IV (13:12)
[2024-05-27] MEDS: cefTRIAXone 1,000 MG in sodium chloride 0.9% (plus) 50 ML 100 MG IV (13:33)
[2024-05-27] MEDS: potassium chloride premix 100 ML 25 MEQ IV ×2 (13:39→17:40)
--- NOTE | 2024-05-27 14:29 | PC.NURSE ---
report called to Héctor at 1427 for pt.
[2024-05-27] MEDS: famotidine 20 mg/2 mL INJ 40 MG IVP (16:27)
--- NOTE | 2024-05-27 16:29 | P.HP_ITS ---
Providers/Chief Complaint 2 Admitting Physician: Rigoberto Rodriguez Primary Care Provider: Wilfrido High DO Chief Complaint: trouble eating or drinking History of Present Illness Pleasant 38-year-old lady with history of migraine headache, obesity, [place] sleeve gast[place] reporting uneventful procedure, however, has had intermittent nausea, poor oral intake, since, came to ER due to recurrent nausea vomiting, not tolerating food drink or her medications. She is having mildly to moderately sore throat and soreness of abdominal muscles from vomiting. In ER found to be dehydrated with severe hypokalemia, potassium 2.1. She received initial hydration, potassium replacement, but is still dehydrated, dry mucous membranes, low to the pressure, soft blood pressures, and with severe hyperkalemia anticipated to require further replacement ER physician requested observation in the hospital. Review of Systems 2 Const: Denies: fever(s), chills, body aches or malaise ENMT: Denies: throat pain, oral sores or ear or mastoid pain Card: Denies: chest pain, edema, pre-syncope or dyspnea on exertion Resp: Denies: dyspnea, productive cough, change in phlegm color or hemoptysis GI: Reports: nausea and vomiting; Denies: abdominal pain, diarrhea, constipation, hematochezia or melena : Denies: flank pain, urinary frequency or hematuria Musc: Denies: back pain, joint swelling or joint redness Skin/Breast: Denies: rash Neuro: Denies: headache(s) or confusion Medications/Allergies Home Medications Medication Instructions Recorded Confirmed Last Taken Type Celexa 40 mg PO DAILY 05/27/24 05/27/24 05/26/24 History omeprazole 40 mg capsule,delayed 40 mg PO DAILY 05/27/24 05/27/24 05/26/24 History release topiramate 50 mg tablet 50 mg PO BEDTIME 05/27/24 05/27/24 05/26/24 History Allergies Allergy/AdvReac Type Severity Reaction Status Date / Time No Known Allergies Allergy Verified 05/27/24 11:44 PFSH Acute 2 PFSH: Medical History Migraine headache GERD (gastroesophageal reflux disease) Surgical History History of repair of hiatal hernia S/P laparoscopic sleeve gastrectomy Social History Smoking and tobacco/nicotine status: never used tobacco/nicotine Alcohol intake: current Alcohol intake frequency: holidays/special occasions only Substance/Drug Use: never Adopted: No Caregiver/support person: No Lives independently: No Household members: spouse Housing: House Marital status: Number of children: 2 Highest education level completed: Associate Degree: Occupational, Technical, Vocational Program service: No Current occupational status: employed Current occupational exposures/hazards: No Pets and animals: No Sexually active: Yes Do you think of yourself as: Straight/Heterosexual Current gender identity: Female Vitals/I&O/Wt Last Vital Signs Temp 97.6 F 05/27/24 11:37 Pulse 54 L 05/27/24 14:00 Resp 17 05/27/24 14:00 BP 110/61 05/27/24 14:00 Pulse Ox 98 05/27/24 14:00 O2 Del Method Room Air 05/27/24 14:46 05/27/24 05/27/24 05/27/24 06:59 14:59 22:59 Intake Total 2099 / 2100 Balance 2100 / 2100 Weight last 48 hrs Weight 83.915 kg Weight 82.554 kg Physical Exam 2 Narrative: Accompanied by her . Const: COMMON NORMALS: patient oriented x3 and alert GENERAL APPEARANCE: c ooperative ORIENTATION/CONSCIOUSNESS: Yes awake HENMT: COMMON NORMALS: oropharynx normal Neck/C-Spine: COMMON NORMALS: no JVD Resp: COMMON NORMALS: normal respiratory effort and clear to auscultation bilaterally AUSCULTATION: clear to auscultation bilaterally Cardio: COMMON NORMALS: no JVD, regular rhythm, S1 normal heart sound present, S2 normal heart sound present and No murmurs present (Cardio) RHYTHM: regular rhythm HEART SOUNDS: S1 normal heart sound present and S2 normal heart sound present GI: COMMON NORMALS: Normal to inspection, nondistended, normoactive bowel sounds present, Soft to palpation and non-tender PALPATION: Yes Soft to palpation Extremity: COMMON NORMALS: no joint enlargement and no pedal edema Neuro: COMMON NORMALS: patient oriented x3 and moves all extremities S ENSORIUM/ORIENTATION: Yes alert Skin: COMMON NORMALS: no rashes or lesions noted GENERAL SKIN EXAM: no rashes or lesions noted Data 05/27/24 11:59 05/27/24 11:59 A&P Assessment and plan (1) Dehydration: Reviewed vitals, CBC, CMP, phosphorus, imaging, UA,, x-ray, CT abdomen pelvis, ER note, discussed with ER provider. Still with dry mucous membranes, decreased turgor, soft blood pressure, continue IV hydration with LR at 50 mill per hour. Discussed with her and ER provider noted increased anion gap 24.1, urine ketones. However, without hyperglycemia, glucose 83. Discussed with her we will check A1c for possible diabetes. She denies history. Monitor for risk of fluid overload with IV hydration. Reassess volume status. (2) Hypokalemia: Severe hypokalemia with recurrent vomiting, potassium 2.1. Receiving additional K rider. Recheck chemistry. At risk of arrhythmia, monitor on telemetry. Bradycardia, reviewed EKG, sinus bradycardia on my interpretation, QTc 420. (3) Vomiting: Zofran antiemetic as needed. For now bowel rest, trial of clear liquids as tolerating. Hide recurrent nausea, difficulty with oral intake which has gotten worse. Is also having some sore throat, this may be secondary to recurrent emesis, but will also check respiratory viral panel. Additionally check topiramate level. Has history of GERD, status post gastric sleeve surgery and hiatal hernia repair. Will increase PPI to twice daily. Should follow-up with surgery versus gastroenterology with sideration of additional evaluation by gastroscopy. Reviewed CT abdomen pelvis, discussed with her and her . (4) H/O gastric sleeve: Wounds on the abdomen have healed well. CT abdomen pelvis reviewed, without acute abnormality. She has had some recurrent nausea and limited oral intake due to this, as well as vomiting which has gotten worse. Would benefit from additional assessment by surgery versus GI. Additionally discussed with her and she is aware that she needs to take vitamins and micronutrients also states has not really kept up with them very well, but will make sure to do so. Plan History of migraine headaches: Topiramate. Will check level. Acidosis: Anion gap acidosis with anion gap 24.1. With metabolic alkalosis with dehydration, bicarb 25. Check A1c. Noted urine ketones. Will check serum ketones. Check VBG. Attestations 2 Medical Necessity Statement*: Place in observation for additional assessment management of dehydration, recurrent nausea and vomiting status post gastric sleeve surgery hernia repair with history of GERD, with dehydration, severe hypokalemia, metabolic acidosis. Diagnoses Dehydration E86.0 Hypokalemia E87.6 Vomiting R11.10 H/O gastric sleeve Z90.3
[2024-05-27] MEDS: lactated ringers 1,000 ML 150 ML IV ×2 (16:34→22:38)
[2024-05-27 17:36] LABS: Estmated Average Glucose 80; Hemoglobin A1C 4.4 % (4.0-6.0)
[2024-05-27] MEDS: lidocaine 1% INJ 10 mL (per mL) 5 ML INJECTION (17:39)
[2024-05-27] MEDS: pantoprazole 40 mg SDV IVP (17:45)
[2024-05-27] MEDS: enoxaparin 30 mg/0.3 mL Syringe SUBCUT (17:47)
[2024-05-27 18:28] LABS: Base Excess VBG -2.3 mmol/L (-3.0-3.0); Blood Gas Operator Identificat GL; Blood Gas Sample Site Not specified; HCO3 VBG 22.7 mmol/L (24-28); PCO2 VBG 38.8 mmHg (41-51); PO2 VBG 29.8 mmHg (25-40); Venous Blood Gas Hematocrit 43.7 % (37-47); pH VBG 7.37 (7.32-7.42)
[2024-05-27 18:59] LABS: Blood Gas Sample Type VENOUS
[2024-05-27 19:10] LABS: Ketone (Acetest) Serum Positive (Negative)
[2024-05-27 19:43] LABS: Adenovirus Not Detected (NOT DETECT); Chlamydia Pneumoniae Not Detected (NOT DETECT); Coronavirus 229E,HKU1,NL63,OC4 Not Detected (NOT DETECT); Human Metapneumovirus Not Detected (NOT DETECT); Human Rhinovirus/Enterovirus Not Detected (NOT DETECT); Influenza A Not Detected (NOT DETECT); Influenza A H1 Not Detected (NOT DETECT); Influenza A H1-2009 Not Detected (NOT DETECT); Influenza A H3 Not Detected (NOT DETECT); Influenza B Not Detected (NOT DETECT); Mycoplasma Pneumoniae Not Detected (NOT DETECT); Parainfluenza Virus Type 1 Not Detected (NOT DETECT); Parainfluenza Virus Type 2 Not Detected (NOT DETECT); Parainfluenza Virus Type 3 Not Detected (NOT DETECT); Parainfluenza Virus Type 4 Not Detected (NOT DETECT); Respiratory Syncytial Virus A Not Detected (NOT DETECT); Respiratory Syncytial Virus B Not Detected (NOT DETECT); SARS-COV-2 Not Detected (NOT DETECT)
[2024-05-27 19:53] LABS: Lactate (Lactic Acid level) 0.9 mmol/L (0.5-2.2)
[2024-05-28] VITALS (10 sets, daily range): BP systolic 93–102; BP diastolic 59–96; PULSE 52–70; RESP 17–18; TEMP 36.4–37; O2SAT 96–99
[2024-05-28] MEDS: lactated ringers 1,000 ML 150 ML IV ×2 (04:47→11:01)
[2024-05-28] MEDS: pantoprazole 40 mg SDV IVP ×2 (04:47→16:56)
[2024-05-28 06:26] LABS: Basophils # 0.1 10^3/uL (0.0-0.1); Basophils % 1.9 %; Eosinophils # 0.1 10^3/uL (0.0-0.8); Eosinophils % 5.4 %; Hematocrit 36.6 % (36-47); Lymphocytes % 37.5 %; Mean Corpuscular HGB Conc 34.2 g/dL (30-55); Mean Corpuscular Hemoglobin 29.1 pg (27-33); Mean Corpuscular Volume 85.3 fl (85-98); Mean Platelet Volume 12.1 fL (7.4-10.4); Monocytes # 0.4 10^3/uL (0.2-0.9); Monocytes % 13.9 %; Neutrophils # 1.07 10^3/uL (1.8-7.7); Neutrophils % 41.3 %; Nucleated Red Blood Cells % 0 %; Platelet Count 164 10^3/cmm (157-399); Red Blood Count 4.29 10^6/uL (3.85-5.65); Red Cell Distribution Width 18.3 % (12.1-15.1); White Blood Count 2.59 10^3/uL (3.29-11.43)
[2024-05-28 06:40] LABS: Alanine Aminotransferase 22 U/L (0-33); Albumin Level 3.2 g/dL (3.5-5.2); Alkaline Phosphatase 37 U/L (35-105); Anion Gap 18.4 (5-19); Aspartate Amino Transferase 29 U/L (0-32); Blood Urea Nitrogen 4 mg/dL (6-20); Calcium 7.9 mg/dL (8.5-10.5); Carbon Dioxide 24 mmol/L (22-29); Chloride 102 mmol/L (98-107); Creatinine Clr Calc Pharmacy 94.4545; Globulin 2.1 g/dL (1.3-4.6); Glomerular Filtration Rate 79.4 mL/min (90-130); Glucose 70 mg/dL (65-115); Osmolality Calculated 289 mOsm/kg (285-295); Phosphorus 1.9 mg/dL (2.5-4.5); Sodium 142 mmol/L (136-145); Total Bilirubin 0.4 mg/dL (0.15-1.2); Total Protein 5.3 g/dL (6.6-8.7)
[2024-05-28 06:51] LABS: Potassium 2.4 mmol/L (3.5-5.1)
[2024-05-28] MEDS: ondansetron 2 mg/ML SDV 2 mL 4 MG IVP ×4 (08:37→23:24)
[2024-05-28] MEDS: potassium phosphate (mEq K) 40 MEQ in sodium chloride 0.9% (100 ml) 100 ML 27.27 MEQ IV (10:55)
[2024-05-28 15:33] LABS: Iron 49 ug/dL (37-145); Percent Saturation 26.4 % (20-50); Thyroid Stimulating Hormone 1.56 uIU/mL (0.27-4.20); Total Iron Binding Capacity 185 mcg/dl; Unsaturated Iron Binding 136 ug/dL (112-347)
[2024-05-28 16:09] LABS: Add Urine Microscopic? NO; Charge for UA Resulting for Rev
--- NOTE | 2024-05-28 16:16 | P.PN_ITS ---
Subjective 2 Subjective: Hospital course, labs appreciated. Patient states he is feeling better. Seen with family by bedside. Denies any further episodes of vomiting and headache. Mildly nauseous. Vitals/I&O/Wt Last Vital Signs Temp 98.1 F 05/28/24 07:21 Pulse 70 05/28/24 11:01 Resp 17 05/28/24 07:21 BP 102/66 05/28/24 11:01 Pulse Ox 97 05/28/24 11:01 O2 Del Method Room Air 05/28/24 11:01 05/28/24 05/28/24 05/28/24 06:59 14:59 22:59 Intake Total 922.5 / 4132.5 1055 / 1055 Balance 922.5 / 4132.5 1055 / 1055 Weight last 48 hrs Weight 84.867 kg Weight 83.915 kg Weight 82.554 kg Physical Exam 2 Narrative: Accompanied by her . Const: COMMON NORMALS: patient oriented x3 and alert GENERAL APPEARANCE: c ooperative ORIENTATION/CONSCIOUSNESS: Yes awake HENMT: COMMON NORMALS: oropharynx normal Neck/C-Spine: COMMON NORMALS: no JVD Resp: COMMON NORMALS: normal respiratory effort and clear to auscultation bilaterally AUSCULTATION: clear to auscultation bilaterally Cardio: COMMON NORMALS: no JVD, regular rhythm, S1 normal heart sound present, S2 normal heart sound present and No murmurs present (Cardio) RHYTHM: regular rhythm HEART SOUNDS: S1 normal heart sound present and S2 normal heart sound present GI: COMMON NORMALS: Normal to inspection, nondistended, normoactive bowel sounds present, Soft to palpation and non-tender PALPATION: Yes Soft to palpation Extremity: COMMON NORMALS: no joint enlargement and no pedal edema Neuro: COMMON NORMALS: patient oriented x3 and moves all extremities S ENSORIUM/ORIENTATION: Yes alert Skin: COMMON NORMALS: no rashes or lesions noted GENERAL SKIN EXAM: no rashes or lesions noted Data 05/28/24 06:12 05/28/24 06:12 A&P Assessment and plan (1) Dehydration: Most likely from poor oral intake post gastrectomy. Continue with LR at 100 cc/h. Monitor electrolytes. Hemodynamically stable. (2) Hypokalemia: Severe hypokalemia with recurrent vomiting. Oral potassium 80 mg one-time along with IV potassium phosphate. Repeat potassium level in evening. Bradycardia, reviewed EKG, sinus bradycardia on my interpretation, QTc 420. (3) Vomiting: Zofran antiemetic as needed. Continue with clear liquid diet. Will advance to full liquid diet by evening if patient tolerating well. Most likely in setting of GERD along with recent gastric sleeve surgery. Continue with Protonix twice daily. Appreciate CT abdomen pelvis results. (4) H/O gastric sleeve: Wounds on the abdomen have healed well. CT abdomen pelvis reviewed, without acute abnormality. She has had some recurrent nausea and limited oral intake due to this, as well as vomiting which has gotten worse. Would benefit from additional assessment by surgery versus GI. Additionally discussed with her and she is aware that she needs to take vitamins and micronutrients also states has not really kept up with them very well, but will make sure to do so. Start on IV thiamine 100 mg daily. Check IV thiamine level, iron panel, vitamin B12 and folate level. Plan History of migraine headaches: Topiramate. Will check level. Acidosis: Resolved. Most likely seen on admission from dehydration. Full code Clear liquid diet advancing to full liquid diet Protonix OPD prophylaxis Lovenox for DVT prophylaxis Attestations 2 Medical Necessity Statement*: Talisha Medeiros is being changed to inpatient status as stay will now exceed 2 midnights. Ongoing hospital care is necessary for dehydration from nausea and vomiting leading to multiple severe electrolyte abnormalities requiring IV supplementation Diagnoses Dehydration E86.0 Hypokalemia E87.6 Vomiting R11.10 H/O gastric sleeve Z90.3
[2024-05-28 16:17] LABS: Bilirubin Urine Neg (Negative); Blood Urine Neg (Negative); Glucose Urine UA Norm (Normal); Ketones Urine 3+ (Negative); Leukocyte Esterase Urine Negative (Negative); Nitrate Urine Negative (Negative); Protein Urine Neg (Negative); Specific Gravity, Urine 1.015 (1.005-1.030); Urine Appearance Clear (CLEAR); Urine Color Yellow (Yellow); Urobilinogen Urine Norm (Negative); pH Urine 6.5 (5-7)
[2024-05-28 16:31] LABS: Vitamin B12 > 2000 pg/mL (232-1245)
[2024-05-28] MEDS: enoxaparin 30 mg/0.3 mL Syringe SUBCUT (17:00)
[2024-05-28] MEDS: potassium chloride oral liq 20 mEq/15 mL UDC 80 MEQ PO (17:00)
[2024-05-28] MEDS: lactated ringers 1,000 ML 100 ML IV (20:12)
[2024-05-28] MEDS: lidocaine 1% 5 ML in potassium chloride premix 100 ML 26.25 ML IV (20:29)
[2024-05-28 22:01] LABS: Potassium 2.5 mmol/L (3.5-5.1)
[2024-05-29] VITALS (8 sets, daily range): BP systolic 92–103; BP diastolic 61–71; PULSE 51–69; RESP 17–18; TEMP 36.7–36.9; O2SAT 95–100
--- NOTE | 2024-05-29 02:51 | PC.NURSE ---
Patient was not able to tolerate PO liquid potassium. Hospitalist notified and order placed.
[2024-05-29] MEDS: pantoprazole 40 mg SDV IVP ×2 (04:29→15:51)
[2024-05-29] MEDS: lactated ringers 1,000 ML 100 ML IV ×3 (05:01→23:41)
[2024-05-29 07:05] LABS: Basophils # 0.1 10^3/uL (0.0-0.1); Eosinophils # 0.2 10^3/uL (0.0-0.8); Eosinophils % 6.1 %; Hematocrit 38.5 % (36-47); Lymphocytes % 41.6 %; Mean Corpuscular HGB Conc 33.8 g/dL (30-55); Mean Corpuscular Hemoglobin 29.2 pg (27-33); Mean Corpuscular Volume 86.5 fl (85-98); Mean Platelet Volume 11.9 fL (7.4-10.4); Monocytes # 0.3 10^3/uL (0.2-0.9); Monocytes % 10.6 %; Neutrophils % 39.3 %; Nucleated Red Blood Cells % 0 %; Platelet Count 161 10^3/cmm (157-399); Red Blood Count 4.45 10^6/uL (3.85-5.65); Red Cell Distribution Width 18.3 % (12.1-15.1); White Blood Count 2.45 10^3/uL (3.29-11.43)
[2024-05-29 07:23] LABS: Alanine Aminotransferase 26 U/L (0-33); Albumin Level 3.2 g/dL (3.5-5.2); Alkaline Phosphatase 37 U/L (35-105); Anion Gap 20.6 (5-19); Aspartate Amino Transferase 57 U/L (0-32); Blood Urea Nitrogen 2 mg/dL (6-20); Calcium 8.2 mg/dL (8.5-10.5); Carbon Dioxide 24 mmol/L (22-29); Chloride 102 mmol/L (98-107); Globulin 2.3 g/dL (1.3-4.6); Glomerular Filtration Rate 92.7 mL/min (90-130); Glucose 66 mg/dL (65-115); Osmolality Calculated 292 mOsm/kg (285-295); Sodium 144 mmol/L (136-145); Total Bilirubin 0.5 mg/dL (0.15-1.2); Total Protein 5.5 g/dL (6.6-8.7)
[2024-05-29 07:24] LABS: Chol HDL Ratio 3.81 mg/dL (0.0-4.40); Cholesterol 164 mg/dL (0-200); HDL Cholesterol 43 mg/dL (60-100); LDL Cholesterol Calculated 98 mg/dL (50-129); Triglycerides 114 mg/dL (0-150); VLDL Cholestrol Calculation 23 mg/dL (0-30)
[2024-05-29 07:32] LABS: Neutrophils # 0.96 10^3/uL (1.8-7.7); Potassium 2.6 mmol/L (3.5-5.1)
[2024-05-29] MEDS: folic acid 1 mg Tablet PO ×2 (08:28→16:45)
[2024-05-29] MEDS: multivitamin therapeutic Tablet 1 TAB PO (08:28)
[2024-05-29] MEDS: lidocaine 1% 5 ML in potassium chloride premix 100 ML 26.25 ML IV ×2 (09:13→12:23)
--- NOTE | 2024-05-29 09:38 | PC.CHAP ---
Pastoral Care Encounter/Spiritual Assessment Type of Contact [] Declined domestic violence advocate visit [] Patient/Family/Request visit [] Outpatient visit [] Follow-up visit [] Physician referral [] Code/Alert [x] Routine visit [] Staff referral [] Actively dying [] Patient sleeping [] Family support [] [] Out of room [] Palliative care [] [] Receiving care in room [] Pre-surgical visit [] Trauma [] Long length of stay [] ICU visit [] Other: Relational/Emotional Strength [x] Patient feels connected with others/family/visitors/staff [] Distress [] Loneliness/isolation [] Abandonment Spirituality of Patient [x] Person of Leanna [] Attends Islam of their Leanna [x] Believes in Prayer [] Reads Bible or Baptist materials [] There are Spiritual issues to be addressed [employer] Tender Interventions [x] Prayer [x] Active listening [x] Non-anxious presence [x] Spiritual/emotional support [] Crisis/trauma care [] Spiritual counseling [] Bereavement support [] Provided bereavement packet [] Provided Bible/devotional materials [] Provided toy/stuffed animal, coloring book to patient or family member [] Provided Communion [] Anointing/Hope [] Salvation [x] Completed spiritual assessment [] Other: Impact on Illness or Injury [] Angry [] Fearful [] Anxious [] Often cries [] Exhaustion [] Unable to work [] Unable to attend hinduism [] Unable to walk/stand [] Unable to read [] Unable to drive [] Unable to eat/drink [] Unable to sleep [] Unable to be with family [] Patient intubated [] Other: Summary Time spent with patient 5 min
[2024-05-29] MEDS: potassium chloride oral liq 20 mEq/15 mL UDC 40 MEQ PO (11:06)
[2024-05-29] MEDS: ondansetron 2 mg/ML SDV 2 mL 4 MG IVP ×3 (11:11→21:17)
--- NOTE | 2024-05-29 11:40 | PC.NURSE ---
Pt still unable to tolerate oral potassium-vomited. Dr. Anderson advised.
--- NOTE | 2024-05-29 14:23 | P.PN_ITS ---
Subjective 2 Subjective: Patient continues to have episodes of nausea and vomiting. She is not able to maintain her oral hydration. Not able to intake oral potassium. Denies abdominal pain. Vitals/I&O/Wt Last Vital Signs Temp 98.3 F 05/29/24 10:57 Pulse 69 05/29/24 10:57 Resp 17 05/29/24 07:04 BP 96/63 05/29/24 10:57 Pulse Ox 99 05/29/24 10:57 O2 Del Method Room Air 05/29/24 10:57 05/28/24 05/29/24 05/29/24 22:59 06:59 14:59 Intake Total 1108.5106 / 2163.5106 986.667 / 3150.1776 1081.667 / 1081.667 Balance 1108.5106 / 2163.5106 986.667 / 3150.1776 1081.667 / 1081.667 Weight last 48 hrs Weight 89.947 kg Weight 84.867 kg Weight 83.915 kg Physical Exam 2 Narrative: Accompanied by her . Const: COMMON NORMALS: patient oriented x3 and alert GENERAL APPEARANCE: c ooperative ORIENTATION/CONSCIOUSNESS: Yes awake HENMT: COMMON NORMALS: oropharynx normal Neck/C-Spine: COMMON NORMALS: no JVD Resp: COMMON NORMALS: normal respiratory effort and clear to auscultation bilaterally AUSCULTATION: clear to auscultation bilaterally Cardio: COMMON NORMALS: no JVD, regular rhythm, S1 normal heart sound present, S2 normal heart sound present and No murmurs present (Cardio) RHYTHM: regular rhythm HEART SOUNDS: S1 normal heart sound present and S2 normal heart sound present GI: COMMON NORMALS: Normal to inspection, nondistended, normoactive bowel sounds present, Soft to palpation and non-tender PALPATION: Yes Soft to palpation Extremity: COMMON NORMALS: no joint enlargement and no pedal edema Neuro: COMMON NORMALS: patient oriented x3 and moves all extremities S ENSORIUM/ORIENTATION: Yes alert Skin: COMMON NORMALS: no rashes or lesions noted GENERAL SKIN EXAM: no rashes or lesions noted Data 05/29/24 06:39 05/29/24 06:39 A&P Assessment and plan (1) Dehydration: Most likely from poor oral intake post gastrectomy. Continue with LR at 100 cc/h. Monitor electrolytes. Hemodynamically stable. (2) Hypokalemia: Severe hypokalemia with recurrent vomiting. Oral potassium 80 mg one-time along with IV potassium phosphate. Repeat potassium level in evening. Bradycardia, reviewed EKG, sinus bradycardia on my interpretation, QTc 420. (3) Vomiting: Zofran antiemetic as needed. Continue with clear liquid diet. Will advance to full liquid diet by evening if patient tolerating well. Most likely in setting of GERD along with recent gastric sleeve surgery. Continue with Protonix twice daily. Appreciate CT abdomen pelvis results. (4) H/O gastric sleeve: Wounds on the abdomen have healed well. CT abdomen pelvis reviewed, without acute abnormality. She has had some recurrent nausea and limited oral intake due to this, as well as vomiting which has gotten worse. Would benefit from additional assessment by surgery versus GI. Additionally discussed with her and she is aware that she needs to take vitamins and micronutrients also states has not really kept up with them very well, but will make sure to do so. Start on IV thiamine 100 mg daily. Check IV thiamine level, iron panel, vitamin B12 and folate level. Plan History of migraine headaches: Topiramate. Will check level. Acidosis: Resolved. Most likely seen on admission from dehydration. Plan for the day: Patient continues to have extensive nausea and vomiting leading to poor oral intake. Continues to have significant hypokalemia. Replaced with 100 mEq IV for now. Continue with oral folic acid as possible. Plan for upper GI series. Will request for surgical consultation for further management. Continues to have leukopenia. Most likely in setting of malnutrition. Continue with IV thiamine. Repeat potassium level in evening. Full code Clear liquid diet advancing to full liquid diet Protonix OPD prophylaxis Lovenox for DVT prophylaxis Attestations 2 Medical Necessity Statement*: Requires further hospitalization for management of significant nausea and vomiting in a patient who is post gastrectomy with the last 3 months leading to significant hypokalemia Diagnoses Dehydration E86.0 Hypokalemia E87.6 Vomiting R11.10 H/O gastric sleeve Z90.3
[2024-05-29 14:46] LABS: Potassium 3.3 mmol/L (3.5-5.1)
[2024-05-29] MEDS: enoxaparin 30 mg/0.3 mL Syringe SUBCUT (15:51)
[2024-05-29] MEDS: lidocaine 1% 5 ML in potassium chloride premix 100 ML 52.5 ML IV (16:44)
--- NOTE | 2024-05-29 17:19 | P.CONIM_ITS ---
Providers/Reason For Consult 2 Consulting Physician/Specialty*: General surgery Reason for Consult*: P.o. intolerance after gastric bypass. Attending Physician: Basilio Anderson MD Primary Care Provider: Wilfrido High DO History of Present Illness History of Present Illness Talisha Medeiros is a 38 year old female who had a Ankur-en-Y gastric bypass in [place] 4 months ago, she has had a loss of weight of about 110 pounds, according to the patient she was back to eating regular food but has noticed that over the previous 2 to 3 weeks she has become intolerant to the majority of food and is now only able to drink liquids or very soft food otherwise she has nausea and vomit. When she initially presented to the hospital she was noted to be very dehydrated and hypokalemic was admitted to the medical service. Due to lack of improvement I have been asked to evaluate her. Review of Systems 2 General: Reports: 10 or more systems reviewed and unremarkable except in HPI and below Medications/Allergies Home Medications Medication Instructions Recorded Confirmed Last Taken Type Celexa 40 mg PO DAILY 05/27/24 05/27/24 05/26/24 History omeprazole 40 mg capsule,delayed 40 mg PO DAILY 05/27/24 05/27/24 05/26/24 History release topiramate 50 mg tablet 50 mg PO BEDTIME 05/27/24 05/27/24 05/26/24 History Allergies Allergy/AdvReac Type Severity Reaction Status Date / Time No Known Allergies Allergy Verified 05/27/24 11:44 Current Medications Generic Name Dose Route Start Last Admin Trade Name Freq PRN Reason Stop Dose Admin Enoxaparin Sodium 30 mg 05/27/24 16:45 05/29/24 15:51 Enoxaparin 30 Mg/0.3 Ml Syringe SUBCUT 30 mg Q24H QUINN Administration Folic Acid 1 mg 05/29/24 09:00 05/29/24 16:45 Folic Acid 1 Mg Tablet PO 1 mg BID QUINN Administration Lactated Ringer's 1,000 mls @ 100 mls/hr 05/27/24 16:30 05/29/24 14:11 Lactated Ringers IV 100 mls/hr .Q10H QUINN Administration Lidocaine HCl 5 ml/ Potassium 105 mls @ 26.25 mls/hr 05/29/24 09:00 05/29/24 13:54 Chloride IV 05/30/24 12:59 Infused ONCE QUINN Infusion Lidocaine HCl 5 ml/ Potassium 105 mls @ 52.5 mls/hr 05/29/24 17:00 05/29/24 16:44 Chloride IV 05/29/24 18:59 52.5 mls/hr ONCE ONE Administration Multivitamins Therapeutic 1 tab 05/29/24 09:00 05/29/24 08:28 Multivitamin Therapeutic Tablet PO 1 tab DAILY QUINN Administration Ondansetron HCl 4 mg 05/27/24 16:29 05/29/24 15:51 Ondansetron 2 Mg/Ml Sdv 2 Ml IVP 4 mg Q4H PRN Administration vomiting, or N/V if npo Pantoprazole Sodium 40 mg 05/27/24 16:30 05/29/24 15:51 Pantoprazole 40 Mg Sdv IVP 40 mg Q12H QUINN Administration Thiamine HCl 100 mg 05/28/24 14:30 05/29/24 08:22 Thiamine 100 Mg/Ml Sdv IVP 100 mg DAILY QUINN Administration PFSH Acute 2 PFSH: Medical History Migraine headache GERD (gastroesophageal reflux disease) Surgical History History of repair of hiatal hernia S/P laparoscopic sleeve gastrectomy Social History Smoking and tobacco/nicotine status: never used tobacco/nicotine Alcohol intake: current Alcohol intake frequency: holidays/special occasions only Substance/Drug Use: never Adopted: No Caregiver/support person: No Lives independently: No Household members: spouse Housing: House Marital status: Number of children: 2 Highest education level completed: Associate Degree: Occupational, Technical, Vocational Program service: No Current occupational status: employed Current occupational exposures/hazards: No Pets and animals: No Sexually active: Yes Do you think of yourself as: Straight/Heterosexual Current gender identity: Female Vitals/I&O/Wt Last Vital Signs Temp 98.3 F 05/29/24 16:00 Pulse 53 L 05/29/24 16:00 Resp 18 05/29/24 16:00 BP 103/69 05/29/24 16:00 Pulse Ox 99 05/29/24 16:00 O2 Del Method Room Air 05/29/24 16:00 05/29/24 05/29/24 05/29/24 06:59 14:59 22:59 Intake Total 986.667 / 3150.1776 1081.667 / 1081.667 165 / 1246.667 Balance 986.667 / 3150.1776 1081.667 / 1081.667 165 / 1246.667 Weight last 48 hrs Weight 198 lb 4.8 oz Weight 187 lb 1.6 oz Physical Exam 2 Narrative: General : Patient is well developed , no acute distress, oriented x3 Head : Normal cephalic, a-traumatic. Nose : Mucous membranes are without erythema. Lungs : Equal chest rise bilaterally, no use of accessory muscles, trachea is midline. CV : Rate and rhythm are normal. Abdomen : Soft, ND, NT, no g/r/m Extremities : No edema. Upper extremities are normal bilaterally. Back : non-tender to palpation, no CVA tenderness. Data 05/29/24 06:39 05/29/24 14:17 A&P Assessment and plan (1) History of gastric bypass: Plan After complete history, physical examination and review of all available clinical data the following is my assessment. The main differential for this patient will be retained food in the stomach causing impaction at the level of the gastrojejunal anastomosis and preventing passage of solid food versus stenosis of the gastrojejunal anastomosis due to scar tissue formation. The first step to the elucidate the cause of the patient's symptoms will be to obtain an upper GI study, depending on the results of the upper GI study my recommendation will be to proceed with EGD for diagnostic purposes or to refer the patient to higher level of care with bariatric surgery and GI availability in order to proceed with possible dilation of the anastomosis versus injection of steroids at the level of the anastomosis. As this is outside of my area of expertise and will require additional technical skills in the case of needing to revise the gastric bypass. Patient shows understanding is agreeable with the plan, have informed her that if she is tolerating liquids and the upper GI study is unremarkable we might be able to send her home on a full liquid diet with high-protein shakes and have her follow-up with the bariatric surgeon as outpatient. Case was discussed with the medical team. Coding Level of Care Code Acute Code for Chg Fwd Diagnoses History of gastric bypass Z98.84
--- NOTE | 2024-05-29 23:49 | PC.NURSE ---
Addendum entered by Lin Roberto RN 05/29/24 23:58: Benadryl IV x1 ordered. Original Note: Dr. Stein notified of the following: Patient states that she has not been receiving her home medications (Celexa and Topamax) and that her anxiety is through the roof now. Patient is asking for something for anxiety/sleep. I asked her if she can take pills without vomiting and she said smaller pills yes, larger pills no.
[2024-05-30] VITALS (9 sets, daily range): BP systolic 97–120; BP diastolic 63–86; PULSE 48–75; RESP 14–18; TEMP 36.6–37.2; O2SAT 97–99
[2024-05-30] MEDS: diphenhydrAMINE 50 mg/mL SDV 1mL 12.5 MG IVP (00:10)
[2024-05-30 06:05] LABS: Basophils % 1.2 %; Eosinophils # 0.2 10^3/uL (0.0-0.8); Eosinophils % 4.7 %; Hematocrit 41.3 % (36-47); Lymphocytes # 1.7 10^3/uL (0.8-4.8); Lymphocytes % 50.3 %; Mean Corpuscular HGB Conc 33.2 g/dL (30-55); Mean Corpuscular Hemoglobin 29.2 pg (27-33); Mean Corpuscular Volume 88.1 fl (85-98); Mean Platelet Volume 11.3 fL (7.4-10.4); Monocytes # 0.3 10^3/uL (0.2-0.9); Monocytes % 9.6 %; Neutrophils # 1.16 10^3/uL (1.8-7.7); Neutrophils % 33.9 %; Nucleated Red Blood Cells % 0 %; Platelet Count 157 10^3/cmm (157-399); Red Blood Count 4.69 10^6/uL (3.85-5.65); Red Cell Distribution Width 18.8 % (12.1-15.1); White Blood Count 3.42 10^3/uL (3.29-11.43)
[2024-05-30 06:25] LABS: Magnesium 1.9 mg/dL (1.7-2.3)
[2024-05-30 06:28] LABS: Alanine Aminotransferase 34 U/L (0-33); Albumin Level 3.4 g/dL (3.5-5.2); Alkaline Phosphatase 38 U/L (35-105); Anion Gap 18.8 (5-19); Aspartate Amino Transferase 58 U/L (0-32); Calcium 8.3 mg/dL (8.5-10.5); Carbon Dioxide 23 mmol/L (22-29); Chloride 101 mmol/L (98-107); Creatinine Clr Calc Pharmacy 127.5456; Globulin 2.2 g/dL (1.3-4.6); Glomerular Filtration Rate 110.7 mL/min (90-130); Glucose 66 mg/dL (65-115); Sodium 140 mmol/L (136-145); Total Bilirubin 0.4 mg/dL (0.15-1.2); Total Protein 5.6 g/dL (6.6-8.7)
[2024-05-30 06:37] LABS: Blood Urea Nitrogen 1 mg/dL (6-20); Osmolality Calculated 284 mOsm/kg (285-295)
[2024-05-30 06:38] LABS: Potassium 2.8 mmol/L (3.5-5.1)
[2024-05-30] MEDS: lidocaine 1% 5 ML in potassium chloride premix 100 ML 26.25 ML IV ×3 (07:36→14:47)
[2024-05-30] MEDS: lactated ringers 1,000 ML 100 ML IV ×2 (07:42→15:04)
[2024-05-30] MEDS: ondansetron 2 mg/ML SDV 2 mL 4 MG IVP ×3 (07:42→22:54)
--- NOTE | 2024-05-30 08:00 | FL_ITS ---
WS: [id number] Air-contrast upper GI series, 05/30/2024 Clinical Data: post gastric sleeve, persistent n/v Comparison: None. Findings: The patient swallowed the air and barium mixture. It flowed normally through the hypopharynx with no aspiration or penetration. The barium then passed normally into the esophagus. There were normal cont ractions. No hiatal hernia, reflux, mass, polyp, erosion or ulcer was seen. The patient had a stomach remnant which was very small. Then then the risks rapid passage of the florian um into the proximal small bowel which was anastomosed to the stomach remnant. There was no ulcer or erosion. The anastomosis between the stomach remnant and the proximal small bowel was quite narrow. T he small bowel filled rapidly with no evidence of any internal hernia, erosion or ulcer. FL/FL upper GI series [id number] Impression: 1. Normal esophagus and hypopharynx. 2. Small stomach remnant anastomosis the proximal small bowel with slight narro wing of the anastomotic junction.
[2024-05-30] MEDS: pantoprazole 40 mg SDV IVP ×2 (08:33→21:05)
[2024-05-30] MEDS: methylPREDNISolone sod succ 40 mg/mL INJ IVP (14:47)
--- NOTE | 2024-05-30 15:11 | PC.NURSE ---
This RN assumes care of patient from [facility].
--- NOTE | 2024-05-30 15:21 | PM.MISC ---
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 This stricture could be due to the scar tissue buildup as patient has no symptoms initially and was able to tolerate food at the beginning. My recommendation will be for her to be evaluated by advanced GI team and bariatric surgery, she will likely require balloon dilation of the anastomosis and steroid injection in order to manage this stricture, in the case of failed therapy she will require revision of her gastric bypass. Unfortunately this procedures are advanced and require a higher level of care that I cannot provide in our institution. In the interim while patient waits for bariatric evaluation and GI evaluation she should be started on a high-dose steroid with taper after about a week, this oftentimes helps with the inflammation and may improve patient's symptoms without the need of additional intervention. I have discussed the findings and assessment with the medical team, they agree will discussed with the patient regarding the best approach and timing of evaluation by bariatric and GI.
--- NOTE | 2024-05-30 15:44 | P.TS_ITS ---
Transfer Summary Providers Date of Admission: 05/28/24 16:19 Date of Discharge/Transfer: 05/30/24 Attending Provider at Admission: Rigoberto Rodriguez Attending Provider at Transfer: Basilio Anderson MD Primary Care Provider: Wilfrido High DO Transfer Plans: Anticipated date of transfer: 05/30/24 . Receiving Facility: [facility] . Receiving Provider: Dr. Ornelas/ Dr. Masterson . Diagnoses at Discharge Discharge Diagnosis (1) History of gastric bypass: Status: Acute (2) H/O gastric sleeve: Status: Acute (3) Hypokalemia: Status: Acute (4) Dehydration: Status: Acute (5) Vomiting: Status: Acute Reason for Visit Reason for Visit trouble eating or drinking Hospital Course Hospital Course Pleasant 38-year-old lady with history of migraine headache, obesity, [place] sleeve gast[place] reporting uneventful procedure, however, has had intermittent nausea, poor oral intake, since, came to ER due to recurrent nausea vomiting, not tolerating food drink or her medications. She is having mildly to moderately sore throat and soreness of abdominal muscles from vomiting. In ER found to be dehydrated with severe hypokalemia, potassium 2.1. She received initial hydration, potassium replacement, but is still dehydrated, dry mucous membranes, low to the pressure, soft blood pressures, and with severe hyperkalemia anticipated to require further replacement ER physician requested observation in the hospital. Patient was admitted to the hospital for evaluation and management. She was started on IV hydration. She required aggressive electrolyte replenishment for hypophosphatemia, hypokalemia, hypomagnesemia. Patient persistently had nausea and vomiting with very limited oral intake. She is not able to maintain her electrolytes by mouth. Surgical team was consulted who requested an upper GI series which showed narrowing at the anastomotic site for which they recommended dilatation. Unfortunately at our hospital we do not have a bariatric surgeon or GI specialist to take care of the dilatation hence transfer was sought. Treatment plan discussed in detail with the patient and she requested to be transferred to a tertiary center. Patient has been accepted and has been transferred in hemodynamically stable condition. Physical Exam Narrative: Accompanied by her . Const: COMMON NORMALS: patient oriented x3 and alert GENERAL APPEARANCE: cooperative ORIENTATION/CONSCIOUSNESS: Yes awake HENMT: COMMON NORMALS: oropharynx normal Neck/C-Spine: COMMON NORMALS: no JVD Resp: COMMON NORMALS: normal respiratory effort and clear to auscultation bilaterally AUSCULTATION: clear to auscultation bilaterally Cardio: COMMON NORMALS: no JVD, regular rhythm, S1 normal heart sound present, S2 normal heart sound present and No murmurs present (Cardio) RHYTHM: regular rhythm HEART SOUNDS: S1 normal heart sound present and S2 normal heart sound present GI: COMMON NORMALS: Normal to inspection, nondistended, normoactive bowel sounds present, Soft to palpation and non-tender PALPATION: Yes Soft to palpation Extremity: COMMON NORMALS: no joint enlargement and no pedal edema Neuro: COMMON NORMALS: patient oriented x3 and moves all extremities SENSORIUM/ORIENTATION: Yes alert Skin: COMMON NORMALS: no rashes or lesions noted GENERAL SKIN EXAM: no rashes or lesions noted TS Data Studies Completed and Pending Pending at discharge Category Date Time Status MAG [Magnesium] AM LABS Lab 05/31/24 04:00 Ordered Topiramate Level Routine Lab 05/27/24 11:59 Received Vitamin B1 (Thiamine),Blood Routine Lab 05/28/24 21:02 Received Completed Studies During Hospitalization Category Date Time Status CT abdomen pelvis w con* [id number] Stat Cat Scan 05/27/24 12:34 Completed [place] upper GI series [id number] Routine Exams 05/30/24 08:00 Completed XR acute abdomen series [id number] Stat Exams 05/27/24 11:51 Completed Laboratory Last Values WBC 3.42 10^3/uL (3.29-11.43) 05/30/24 05:50 RBC 4.69 10^6/uL (3.85-5.65) 05/30/24 05:50 Hgb 13.70 g/dL (11.27-16.99) 05/30/24 05:50 Hct 41.3 % (36-47) 05/30/24 05:50 MCV 88.1 fl (85-98) 05/30/24 05:50 MCH 29.2 pg (27-33) 05/30/24 05:50 MCHC 33.2 g/dL (30-55) 05/30/24 05:50 RDW 18.8 % (12.1-15.1) H 05/30/24 05:50 Plt Count 157 10^3/cmm (157-399) 05/30/24 05:50 MPV 11.3 fL (7.4-10.4) H 05/30/24 05:50 Neut % (Auto) 33.9 % 05/30/24 05:50 Lymph % (Auto) 50.3 % 05/30/24 05:50 [place] % (Auto) 9.6 % 05/30/24 05:50 Eos % (Auto) 4.7 % 05/30/24 05:50 Baso % (Auto) 1.2 % 05/30/24 05:50 Neut # (Auto) 1.16 10^3/uL (1.8-7.7) L 05/30/24 05:50 Lymph # (Auto) 1.7 10^3/uL (0.8-4.8) 05/30/24 05:50 [place] # (Auto) 0.3 10^3/uL (0.2-0.9) 05/30/24 05:50 Eos # (Auto) 0.2 10^3/uL (0.0-0.8) 05/30/24 05:50 Baso # (Auto) 0.0 10^3/uL (0.0-0.1) 05/30/24 05:50 Nucleated RBC % (auto) 0 % 05/30/24 05:50 Nucleated RBCs # 0.0 /100WBC 05/30/24 05:50 Specimen Type Venous 05/27/24 18:00 Sample Site Not specified 05/27/24 18:00 Bentley Test N/a 05/27/24 18:00 VBG pH 7.37 (7.32-7.42) 05/27/24 18:00 VBG pCO2 38.8 mmHg (41-51) L 05/27/24 18:00 VBG pO2 29.8 mmHg (25-40) 05/27/24 18:00 VBG HCO3 22.7 mmol/L (24-28) L 05/27/24 18:00 VBG Base Excess -2.3 mmol/L (-3.0-3.0) 05/27/24 18:00 VBG Hematocrit 43.7 % (37-47) 05/27/24 18:00 O2 Delivery Device Not Reportable 05/27/24 18:00 [employer] Specialist ID Gl 05/27/24 18:00 Sodium 140 mmol/L (136-145) 05/30/24 05:50 Potassium 2.8 mmol/L (3.5-5.1) L* 05/30/24 05:50 Chloride 101 mmol/L (98-107) 05/30/24 05:50 Carbon Dioxide 23 mmol/L (22-29) 05/30/24 05:50 Anion Gap 18.8 (5-19) 05/30/24 05:50 BUN 1 mg/dL (6-20) L 05/30/24 05:50 Creatinine 0.6 mg/dL (0.5-0.9) 05/30/24 05:50 GFR Calculation 110.7 mL/min (90-130) 05/30/24 05:50 Glucose 66 mg/dL (65-115) 05/30/24 05:50 Estimat Average Glucose 80 05/27/24 11:59 Hemoglobin A1c 4.4 % (4.0-6.0) 05/27/24 11:59 Calculated Osmolality 284 mOsm/kg (285-295) L 05/30/24 05:50 Lactate 0.9 mmol/L (0.5-2.2) 05/27/24 19:26 Calcium 8.3 mg/dL (8.5-10.5) L 05/30/24 05:50 Phosphorus 1.9 mg/dL (2.5-4.5) L 05/28/24 06:12 Magnesium 1.9 mg/dL (1.7-2.3) 05/30/24 05:50 Iron 49 ug/dL (37-145) 05/28/24 06:12 TIBC 185 mcg/dl 05/28/24 06:12 % Saturation 26.4 % (20-50) 05/28/24 06:12 Unsat Iron Binding 136 ug/dL (112-347) 05/28/24 06:12 Total Bilirubin 0.4 mg/dL (0.15-1.2) 05/30/24 05:50 AST 58 U/L (0-32) H 05/30/24 05:50 ALT 34 U/L (0-33) H 05/30/24 05:50 Alkaline Phosphatase 38 U/L (35-105) 05/30/24 05:50 Total Protein 5.6 g/dL (6.6-8.7) L 05/30/24 05:50 Albumin 3.4 g/dL (3.5-5.2) L 05/30/24 05:50 Globulin 2.2 g/dL (1.3-4.6) 05/30/24 05:50 Triglycerides 114 mg/dL (0-150) 05/29/24 06:39 Cholesterol 164 mg/dL (0-200) 05/29/24 06:39 LDL Cholesterol, Calc 98 mg/dL (50-129) 05/29/24 06:39 Total VLDL Cholesterol 23 mg/dL (0-30) 05/29/24 06:39 HDL Cholesterol 43 mg/dL (60-100) L 05/29/24 06:39 Cholesterol/HDL Ratio 3.81 mg/dL (0.0-4.40) 05/29/24 06:39 Vitamin B12 > 2000 pg/mL (232-1245) H 05/28/24 06:12 Folate 2.0 ng/mL (4.8-37.3) L 05/29/24 06:39 TSH 1.56 uIU/mL (0.27-4.20) 05/28/24 06:12 Urine Color Yellow (Yellow) 05/28/24 15:40 Urine Appearance Clear (CLEAR) 05/28/24 15:40 Urine pH 6.5 (5-7) 05/28/24 15:40 Ur Specific [place] 1.015 (1.005-1.030) 05/28/24 15:40 Urine Protein Neg (Negative) 05/28/24 15:40 Urine Glucose (UA) Norm (Normal) 05/28/24 15:40 Urine Ketones 3+ (Negative) H 05/28/24 15:40 Urine Blood Neg (Negative) 05/28/24 15:40 Urine Nitrate Negative (Negative) 05/28/24 15:40 Urine Bilirubin Neg (Negative) 05/28/24 15:40 Urine Urobilinogen Norm mg/dL (Negative) 05/28/24 15:40 Ur Leukocyte Esterase Negative (Negative) 05/28/24 15:40 Urine RBC 5-10 /hpf (0-2) H 05/27/24 12:20 Urine WBC 10-15 /hpf (0-5) H 05/27/24 12:20 Ur Squamous Epith Cells 15-25 /hpf (0-5) H 05/27/24 12:20 Amorphous Sediment Not Reportable 05/27/24 12:20 Urine Bacteria 2+ /hpf (NONE) H 05/27/24 12:20 Serum Ketones Positive (Negative) H 05/27/24 18:24 Adenovirus (PCR) Not detected (NOT DETECT) 05/27/24 17:50 C. pneumoniae DNA (PCR) Not detected (NOT DETECT) 05/27/24 17:50 Coronavirus 229E (PCR) Not detected (NOT DETECT) 05/27/24 17:50 Human Metapneumovir PCR Not detected (NOT DETECT) 05/27/24 17:50 Influenza A (H1) PCR Not detected (NOT DETECT) 05/27/24 17:50 Influ A (H1/09) PCR Not detected (NOT DETECT) 05/27/24 17:50 Influenza A (H3) PCR Not detected (NOT DETECT) 05/27/24 17:50 Influenza Type A (PCR) Not detected (NOT DETECT) 05/27/24 17:50 Influenza Type B (PCR) Not detected (NOT DETECT) 05/27/24 17:50 M. pneumoniae (PCR) Not detected (NOT DETECT) 05/27/24 17:50 Parainfluenza 1 (PCR) Not detected (NOT DETECT) 05/27/24 17:50 Parainfluenza 2 (PCR) Not detected (NOT DETECT) 05/27/24 17:50 Parainfluenza 3 (PCR) Not detected (NOT DETECT) 05/27/24 17:50 Parainfluenza 4 (PCR) Not detected (NOT DETECT) 05/27/24 17:50 RSV Type A (PCR) Not detected (NOT DETECT) 05/27/24 17:50 RSV Type B (PCR) Not detected (NOT DETECT) 05/27/24 17:50 Entero/Rhino (PCR) Not detected (NOT DETECT) 05/27/24 17:50 SARS-CoV-2 (PCR) Not detected (NOT DETECT) 05/27/24 17:50 Radiology Impressions Chest/Abdomen X-ray 05/27/24 11:51 IMPRESSION: No acute findings. Abdomen/Pelvis CT 05/27/24 12:34 IMPRESSION: No acute findings. Upper GI Series 05/30/24 08:00 Impression: 1. Normal esophagus and hypopharynx. 2. Small stomach remnant anastomosis the proximal small bowel with slight narrowing of the anastomotic junction. Recent Clincial Data Last Vital Signs Temp 97.8 F 05/30/24 08:00 Pulse 73 05/30/24 14:00 Resp 14 05/30/24 08:00 BP 101/68 05/30/24 08:00 Pulse Ox 99 05/30/24 08:00 O2 Del Method Room Air 05/30/24 08:00 Vital Signs Temp Pulse Resp BP Pulse Ox O2 Del Method 05/30/24 14:00 73 05/30/24 08:00 97.8 F 60 14 101/68 99 Room Air 05/30/24 06:00 48 L 05/30/24 04:00 97.8 F 56 L 18 97/63 98 Intake & Output/Weight 05/28/24 05/29/24 05/30/24 05/31/24 06:59 06:59 06:59 06:59 Intake Total 4132.5 / 4132.5 3150.1776 / 3150.1776 2401.667 / 2401.667 1711.584 / 1711.584 Balance 4132.5 / 4132.5 3150.1776 / 3150.1776 2401.667 / 2401.667 1711.584 / 1711.584 Weight 84.867 kg 89.947 kg 86.908 kg Vitals Last Vital Signs Temp 97.8 F 05/30/24 08:00 Pulse 73 05/30/24 14:00 Resp 14 05/30/24 08:00 BP 101/68 05/30/24 08:00 Pulse Ox 99 05/30/24 08:00 O2 Del Method Room Air 05/30/24 08:00 TS Medications Medications Acetaminophen (Acetaminophen 325 Mg Tablet) 650 mg PO Q6H PRN PRN Reason: Mild/Mod Pain Or Temp >/= 101 Enoxaparin Sodium (Enoxaparin 30 Mg/0.3 Ml Syringe) 30 mg SUBCUT Q24H QUINN Last Admin: 05/29/24 15:51 Dose: 30 mg Folic Acid (Folic Acid 1 Mg Tablet) 1 mg PO BID QUINN Last Admin: 05/30/24 12:14 Dose: Not Given Lactated Ringer's (Lactated Ringers) 1,000 mls @ 100 mls/hr IV .Q10H [facility] Last Admin: 05/30/24 15:04 Dose: 100 mls/hr Lidocaine HCl 5 ml/ Potassium (Chloride) 105 mls @ 26.25 mls/hr IV Q4H QUINN Stop: 05/30/24 18:44 Last Admin: 05/30/24 14:47 Dose: 26.25 mls/hr Lidocaine HCl 5 ml/ Potassium (Chloride) 105 mls @ 52.5 mls/hr IV ONCE ONE Stop: 05/30/24 20:29 Multivitamins Therapeutic (Multivitamin Therapeutic Tablet) 1 tab PO DAILY [facility] Last Admin: 05/30/24 12:15 Dose: Not Given Ondansetron HCl (Ondansetron 2 Mg/Ml Sdv 2 Ml) 4 mg IVP Q4H PRN PRN Reason: vomiting, or N/V if npo Last Admin: 05/30/24 07:42 Dose: 4 mg Pantoprazole Sodium (Pantoprazole 40 Mg Sdv) 40 mg IVP Q12H [facility] Last Admin: 05/30/24 08:33 Dose: 40 mg Thiamine HCl (Thiamine 100 Mg/Ml Sdv) 100 mg IVP DAILY [facility] Last Admin: 05/30/24 08:33 Dose: 100 mg Discontinued Medications Diphenhydramine HCl (Diphenhydramine 50 Mg/Ml Sdv 1ml) 12.5 mg IVP ONCE ONE Stop: 05/29/24 23:59 Last Admin: 05/30/24 00:10 Dose: 12.5 mg Famotidine (Famotidine 20 Mg/2 Ml Inj) 40 mg IVP ONCE ONE Stop: 05/27/24 14:41 Last Admin: 05/27/24 16:27 Dose: 40 mg Sodium Chloride (Sodium Chloride 0.9%) 1,000 mls @ 999 mls/hr IV .Q1H1M ONE Stop: 05/27/24 12:51 Last Infusion: 05/27/24 12:59 Dose: Infused Magnesium Sulfate (Magnesium Sulfate Premix) 2 gm in 50 mls @ 50 mls/hr IV ONCE ONE Stop: 05/27/24 13:26 Last Infusion: 05/27/24 13:38 Dose: Infused Potassium Chloride (K-Alfa) 100 mls @ 25 mls/hr IV ONCE ONE Stop: 05/27/24 16:26 Last Infusion: 05/27/24 17:53 Dose: Infused Sodium Chloride (Sodium Chloride 0.9%) 1,000 mls @ 999 mls/hr IV .Q1H1M ONE Stop: 05/27/24 13:51 Last Infusion: 05/27/24 14:49 Dose: Infused Ceftriaxone Sodium 1,000 mg/ (Sodium Chloride) 50 mls @ 100 mls/hr IV ONCE ONE; Protocol Stop: 05/27/24 13:20 Last Infusion: 05/27/24 13:47 Dose: Infused Potassium Chloride (K-Alfa) 100 mls @ 25 mls/hr IV ONCE ONE Stop: 05/27/24 18:39 Last Infusion: 05/27/24 21:52 Dose: Infused Potassium Phosphate 40 meq/ (Sodium Chloride) 108.5106 mls @ 27.273 mls/hr IV ONCE ONE Stop: 05/28/24 14:24 Last Infusion: 05/28/24 17:52 Dose: Infused Lidocaine HCl 5 ml/ Potassium (Chloride) 105 mls @ 26.25 mls/hr IV ONCE ONE Stop: 05/29/24 00:03 Last Infusion: 05/29/24 00:45 Dose: Infused Lidocaine HCl 5 ml/ Potassium (Chloride) 105 mls @ 26.25 mls/hr IV ONCE ONE Stop: 05/29/24 00:44 Last Admin: 05/28/24 20:35 Dose: Not Given Lidocaine HCl 5 ml/ Potassium (Chloride) 105 mls @ 26.25 mls/hr IV ONCE QUINN Stop: 05/30/24 12:59 Last Infusion: 05/29/24 13:54 Dose: Infused Lidocaine HCl 5 ml/ Potassium (Chloride) 105 mls @ 52.5 mls/hr IV ONCE ONE Stop: 05/29/24 10:52 Lidocaine HCl 5 ml/ Potassium (Chloride) 105 mls @ 26.25 mls/hr IV ONCE ONE Stop: 05/29/24 16:59 Last Infusion: 05/29/24 16:37 Dose: Infused Lidocaine HCl 5 ml/ Potassium (Chloride) 105 mls @ 52.5 mls/hr IV ONCE ONE Stop: 05/29/24 18:59 Last Infusion: 05/29/24 19:32 Dose: Infused Lidocaine HCl 5 ml/ Potassium (Chloride) 105 mls @ 26.25 mls/hr IV ONCE ONE Stop: 05/30/24 10:51 Last Infusion: 05/30/24 11:55 Dose: Infused Iohexol (Iohexol 350 Mg/Ml 500 Ml Btl (Per Ml)) 0 ml IV ONCE ONE Stop: 05/27/24 13:12 Last Admin: 05/27/24 13:12 Dose: 100 ml Lidocaine HCl (Lidocaine 1% Inj 10 Ml (Per Ml)) 5 ml INJECTION ONCE ONE Stop: 05/27/24 17:31 Last Admin: 05/27/24 17:39 Dose: 5 ml Methylprednisolone Sodium Succinate (Methylprednisolone Sod Succ 40 Mg/Ml Inj) 40 mg IVP ONCE ONE Stop: 05/30/24 14:22 Last Admin: 05/30/24 14:47 Dose: 40 mg Ondansetron HCl (Ondansetron 2 Mg/Ml Sdv 2 Ml) 4 mg IVP ONCE ONE Stop: 05/27/24 11:52 Last Admin: 05/27/24 12:16 Dose: 4 mg Potassium Chloride (Potassium Chloride Er 20 Meq Tablet) 40 meq PO ONCE ONE Stop: 05/27/24 12:28 Last Admin: 05/27/24 12:43 Dose: 40 meq Potassium Chloride (Potassium Chloride Oral Liq 20 Meq/15 Ml Udc) 80 meq PO ONCE ONE Stop: 05/28/24 14:30 Last Admin: 05/28/24 17:00 Dose: 80 meq Potassium Chloride (Potassium Chloride Oral Liq 20 Meq/15 Ml Udc) 100 meq PO ONCE ONE Stop: 05/29/24 07:37 Last Admin: 05/29/24 08:48 Dose: Not Given Potassium Chloride (Potassium Chloride Oral Liq 20 Meq/15 Ml Udc) 40 meq PO ONCE ONE Stop: 05/29/24 10:24 Last Admin: 05/29/24 11:06 Dose: 40 meq Allergies vega Allergy (Verified 05/30/24 06:11) ADR-Itching vega flavor Allergy (Verified 05/30/24 06:11) ADR-Itching Home Medications Celexa 40 mg PO DAILY 05/27/24 [History Confirmed 05/27/24] omeprazole 40 mg capsule,delayed release 40 mg PO DAILY 05/27/24 [History Confirmed 05/27/24] topiramate 50 mg tablet 50 mg PO BEDTIME 05/27/24 [History Confirmed 05/27/24] Discharge Plan Discharge Patient Disposition: Xfer Short-Term Hosp Condition: Stable Prescriptions: Continued omeprazole 40 mg Capsule,Delayed Release(Dr/Ec) 40 mg PO DAILY Celexa 40 mg PO DAILY topiramate 50 mg tablet 50 mg PO BEDTIME Referrals: Wilfrido High DO [Primary Care Provider] - Patient Instructions: Opioid Safety Transfer Attestations Time Spent in Transfer Care: greater than 30 min Specific Discharge Activities: educating patient, educating and/or supporting family/caregiver, discussing with pcp/other providers, discussing with continuous pillowcase cutter/social workers/dc planners, documenting/other paperwork and evaluating patient/reviewing data Status at Transfer: Cognitive status at transfer: cognitively intact ; Behavioral status at transfer: cooperative ; Functional status at transfer: independent ambulation ; Overall status at transfer: patient is not back to baseline Quality Metrics Clinical Quality Measures [ No reported AMI, CVA or VTE this stay] Coding Level of Care Code 76146 Total time (in minutes) for Discharge: 70 Diagnoses History of gastric bypass Z98.84 H/O gastric sleeve Z90.3 Hypokalemia E87.6 Dehydration E86.0 Vomiting R11.10
[2024-05-30] MEDS: folic acid 1 mg Tablet PO (16:56)
[2024-05-30] MEDS: enoxaparin 30 mg/0.3 mL Syringe SUBCUT (16:57)
--- NOTE | 2024-05-30 18:55 | PC.NURSE ---
Report called to CHANCE Reinoso at [place].
[2024-05-30] MEDS: lidocaine 1% 5 ML in potassium chloride premix 100 ML 52.5 ML IV (19:43)
[2024-05-30] MEDS: citalopram 20 mg Tablet 40 MG PO (22:46)
[2024-05-31] MEDS: lactated ringers 1,000 ML 100 ML IV (01:08)
[2024-05-31 04:00] VITALS: BP 111/75; PULSE 61; RESP 18; TEMP 36.6; O2SAT 97
[2024-05-31] MEDS: acetaminophen 325 mg Tablet 650 MG PO (04:27)
[2024-05-31] MEDS: ondansetron 2 mg/ML SDV 2 mL 4 MG IVP ×2 (04:30→07:55)
[2024-05-31 05:56] LABS: Magnesium 1.9 mg/dL (1.7-2.3)
[2024-05-31 05:57] LABS: Alanine Aminotransferase 32 U/L (0-33); Albumin Level 3.2 g/dL (3.5-5.2); Alkaline Phosphatase 37 U/L (35-105); Anion Gap 21.3 (5-19); Aspartate Amino Transferase 54 U/L (0-32); Calcium 8.5 mg/dL (8.5-10.5); Carbon Dioxide 20 mmol/L (22-29); Chloride 104 mmol/L (98-107); Creatinine Clr Calc Pharmacy 127.2245; Globulin 2.3 g/dL (1.3-4.6); Glomerular Filtration Rate 110.7 mL/min (90-130); Glucose 69 mg/dL (65-115); Potassium 3.3 mmol/L (3.5-5.1); Sodium 142 mmol/L (136-145); Total Bilirubin 0.5 mg/dL (0.15-1.2); Total Protein 5.5 g/dL (6.6-8.7)
[2024-05-31 06:00] VITALS: PULSE 55
[2024-05-31 06:08] LABS: Blood Urea Nitrogen 1 mg/dL (6-20); Osmolality Calculated 288 mOsm/kg (285-295)
[2024-05-31 07:41] VITALS: BP 114/78; PULSE 59; RESP 14; TEMP 36.8; O2SAT 96
[2024-05-31 08:12] VITALS: BP 114/78; PULSE 59; RESP 14; TEMP 36.8; O2SAT 96
--- NOTE | 2024-05-31 14:28 | P.PN_ITS ---
Subjective 2 Subjective: Patient was [facility] transf[facility]. Overnight could not be transferred because of transportation issues. No acute events overnight. Patient had reportedly remained comfortable without episodes of nausea. Vitals/I&O/Wt Last Vital Signs Temp 98.3 F 05/31/24 08:12 Pulse 59 L 05/31/24 08:12 Resp 14 05/31/24 08:12 BP 114/78 05/31/24 08:12 Pulse Ox 96 05/31/24 08:12 O2 Del Method Room Air 05/31/24 07:41 05/30/24 05/31/24 05/31/24 22:59 06:59 14:59 Intake Total 1246.667 / 2221.584 1060 / 3281.584 Balance 1246.667 / 2221.584 1060 / 3281.584 Weight last 48 hrs Weight 86.5 kg Weight 86.908 kg Physical Exam 2 Narrative: Patient transferred before could be examined. Data 05/30/24 05:50 05/31/24 05:10 A&P Assessment and plan (1) History of gastric bypass: (2) H/O gastric sleeve: Wounds on the abdomen have healed well. CT abdomen pelvis reviewed, without acute abnormality. She has had some recurrent nausea and limited oral intake due to this, as well as vomiting which has gotten worse. Would benefit from additional assessment by surgery versus GI. Additionally discussed with her and she is aware that she needs to take vitamins and micronutrients also states has not really kept up with them very well, but will make sure to do so. Start on IV thiamine 100 mg daily. Check IV thiamine level, iron panel, vitamin B12 and folate level. (3) Hypokalemia: Severe hypokalemia with recurrent vomiting. Oral potassium 80 mg one-time along with IV potassium phosphate. Repeat potassium level in evening. Bradycardia, reviewed EKG, sinus bradycardia on my interpretation, QTc 420. (4) Dehydration: Most likely from poor oral intake post gastrectomy. Continue with LR at 100 cc/h. Monitor electrolytes. Hemodynamically stable. (5) Vomiting: Zofran antiemetic as needed. Continue with clear liquid diet. Will advance to full liquid diet by evening if patient tolerating well. Most likely in setting of GERD along with recent gastric sleeve surgery. Continue with Protonix twice daily. Appreciate CT abdomen pelvis results. Plan History of migraine headaches: Topiramate. Will check level. Acidosis: Resolved. Most likely seen on admission from dehydration. Plan for the day: Being transferred to tertiary center for further evaluation and management by bariatric surgery/gastroenterology for dilatation of narrowing anastomosis at previous gastric sleeve surgery. To continue with IV hydration and electrolyte replacement. Full code Clear liquid diet advancing to full liquid diet Protonix OPD prophylaxis Lovenox for DVT prophylaxis Attestations 2 Medical Necessity Statement*: Transfer to tertiary center Diagnoses History of gastric bypass Z98.84 H/O gastric sleeve Z90.3 Hypokalemia E87.6 Dehydration E86.0 Vomiting R11.10
[2024-06-04 08:04] LABS: Vitamin B1 (Thiamine),Blood 240 nmol/L (78-185)
== END 2024-05-31 08:07 | disposition short-term general hospital (02) | DRG 394 ==
LOC: ER 14:06 → MEDSURG 14:29
PROVIDERS: Admitting Provider Internal Medicine; Emergency Provider Emergency Medicine; PCP Family Medicine; Visit Provider Student in an Organized Health Care Education/Training Program
DX: K63.89 Other specified diseases of intestine (principal); E87.20 Acidosis, unspecified; N39.0 Urinary tract infection, site not specified; E87.6 Hypokalemia; E86.0 Dehydration; E83.42 Hypomagnesemia; E83.39 Other disorders of phosphorus metabolism; G43.909 Migraine, unspecified, not intractable, without status migrainosus; Z98.84 Bariatric surgery status
CPT/HCPCS: 36415; 74022; 74177; 74240; 80053; 80061; 80201; 81001; 81003; 82009; 82607; 82746; 82803; 83036; 83540; 83550; 83605; 83735; 84100; 84132; 84425; 84443; 85025; 87486; 87581; 87633; 93005; 96365; 96366; 96367; 96372; 96375; 99285; C9113; G0378; J0696; J1200; J1650; J2405; J2919; J3411; J3475; J3480; J3490; J7030; J7120; Q9967

== ENCOUNTER 2024-07-30 09:00 | Emergency (ER) | payer OTHER, SELFPAY ==
[2024-07-30 09:08] VITALS: BP 137/82; PULSE 63; RESP 16; TEMP 36.8; O2SAT 97
--- NOTE | 2024-07-30 09:12 | XRR_ITS ---
PROCEDURE INFORMATION: Exam: XR Chest Exam date and time: 07/30/2024 9:24 AM Age: 38 years old Clinical indication: Pain; Angina pectoris; Additional info: Chest pain TECHNIQUE: Imaging protocol: Radiologic exam of the chest. Views: 1 view. COMPARISON: CT abdomen pelvis w con* [id number] 05/27/2024 1:08 PM FINDINGS: Lungs: Unremarkable. No consolidation. Pleural spaces: Unremarkable. No pleural effusion. No pneumothorax. Heart/Mediastinum: Unremarkable. No cardiomegaly. Bones/joints: Unremarkable. XR/XR chest 1V portable [id number] IMPRESSION: No acute findings.
--- NOTE | 2024-07-30 09:13 | ED_ITS ---
HPI - SOB/Dyspnea 2 General: Chief Complaint: Shortness of Breath/Dyspnea Stated Complaint: Low chest pain on both sides Time Seen by Provider: 07/30/24 09:04 Source: patient Mode of arrival: ambulatory Limitations: no limitations History of Present Illness: HPI Narrative: Patient is a 38-year-old female presents to ED today with a complaint of bilateral lower rib/chest pain. She states symptoms began on Tuesday and have been constant since onset. She has had a nonproductive cough and congestion. 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 She did take a home COVID test over the weekend and it was negative. She feels like pain worsens when she lies on her sides. Patient states she does feel short of breath and is starting to feel short of breath at rest. She reports pain with deep inspiration. She does not have any chest pain up higher. No radicular discomfort. No recent surgeries, hemoptysis, immobilization. Vital signs are stable upon arrival. PMH is significant for gastric bypass surgery. She has no known cardiac or pulmonary history. She is not having any abdominal pain or vomiting. MD elicited complaint: shortness of breath, cough and chest pain Onset (ago): day(s) Timing: constant Severity: moderate Exacerbating factors: other (lying on her sides) Relieving factors: nothing Associated symptoms: Reports chest pain (lower rib/chest pain), cough and other (congestion); Deny abdominal pain, chest congestion, extremity pain, fever(s), hemoptysis, lightheadedness, nausea, orthopnea, palpitations, syncope or vomiting Treatment prior to arrival: none Related Data Home Medications Medication Instructions Recorded Confirmed topiramate 50 mg tablet 200 mg PO BEDTIME 05/27/24 07/30/24 citalopram 40 mg tablet 40 mg PO DAILY 07/30/24 07/30/24 omeprazole 20 mg capsule,delayed 20 mg PO DAILY 07/30/24 07/30/24 release ondansetron 4 mg disintegrating 4 mg PO Q6H PRN Nausea 07/30/24 07/30/24 tablet Previous Rx's Medication Instructions Recorded potassium chloride 20 mEq 20 meq PO BID #10 tabs 07/30/24 tablet,extended release Allergies Allergy/AdvReac Type Severity Reaction Status Date / Time vega Allergy ADR-Itching Verified 05/30/24 06:11 vega flavor Allergy ADR-Itching Verified 05/30/24 06:11 Review of Systems 2 Const: Denies: fever(s), chills, body aches, fatigue or malaise Card: Reports: chest pain (lower rib/chest pain); Denies: palpitations, irregular heart rhythm, edema, swelling of feet/ankles, lightheadedness, syncope, pre-syncope, dyspnea on exertion, orthopnea, leg pain with exertion or acrocyanosis Resp: Reports: dyspnea, non-productive cough and pain on inspiration; Denies: wheezing, stridor, hemoptysis or chest congestion GI: Denies: abdominal pain, nausea, vomiting, diarrhea or change in bowel habits : Denies: flank pain, difficulty voiding, dysuria, urinary frequency, urinary urgency or urinary hesitancy Musc: Denies: neck pain, back pain, extremity pain, extremity swelling, joint pain or joint swelling Skin/Breast: Denies: rash Neuro: Denies: headache(s), numbness in extremities, weakness in extremities or sensory changes PFSH ED 2 PFSH: Medical History Migraine headache GERD (gastroesophageal reflux disease) Surgical History History of repair of hiatal hernia S/P laparoscopic sleeve gastrectomy Social History Smoking and tobacco/nicotine status: never used tobacco/nicotine Alcohol intake: current Alcohol intake frequency: holidays/special occasions only Substance/Drug Use: never Adopted: No Caregiver/support person: No Lives independently: No Household members: spouse Housing: House Marital status: Number of children: 2 Highest education level completed: Associate Degree: Occupational, Technical, Vocational Program service: No Current occupational status: employed Current occupational exposures/hazards: No Pets and animals: No Sexually active: Yes Do you think of yourself as: Straight/Heterosexual Current gender identity: Female Physical Exam 2 Const: COMMON NORMALS: no acute distress, average body habitus, patient oriented x3, no limitations, healthy appearing, alert and well nourished G ENERAL APPEARANCE: cooperative ORIENTATION/CONSCIOUSNESS: Yes awake, Yes oriented to person, Yes oriented to place and Yes oriented to time Chest: COMMONS NORMALS: normal inspection of the chest and normal palpation of entire chest wall Resp: COMMON NORMALS: normal respiratory effort and clear to auscultation bilaterally AUSCULTATION: clear to auscultation bilaterally Cardio: COMMON NORMALS: regular rate and regular rhythm RATE: regular rate RHYTHM: regular rhythm GI: COMMON NORMALS: Normal to inspection, nondistended, normoactive bowel sounds present, Soft to palpation, non-tender, No hepatosplenomegaly present and no masses INSPECTION: Yes normal to inspection AUSCULTATION: Yes normoactive bowel sounds PALPATION: Yes Soft to palpation, No Tenderness to palpation present (GI), No Guarding due to palpation present (GI) and Yes No hepatosplenomegaly present : COMMON NORMALS: Yes no CVA tenderness BLADDER/KIDNEY EXAM: Yes no CVA tenderness Back/Pelvis: COMMON NORMALS: no CVA tenderness Extremity: COMMON NORMALS: capillary refill normal, no clubbing, cyanosis or edema, no calf tenderness and no pedal edema GENERAL: Yes normal exam except as noted Neuro: COMMON NORMALS: patient oriented x3, moves all extremities, no focal motor deficits, no sensory deficits noted and gait normal S ENSORIUM/ORIENTATION: Yes alert, Yes oriented to person, Yes oriented to place and Yes oriented to time Skin: COMMON NORMALS: no rashes or lesions noted GENERAL SKIN EXAM: no rashes or lesions noted Course 2 Vital Signs: Vital signs: Vital Signs Temperature 98.2 F 07/30/24 09:08 Pulse Rate 53 L 07/30/24 10:38 Respiratory Rate 16 07/30/24 09:08 Blood Pressure 116/70 07/30/24 10:38 Pulse Oximetry 99 07/30/24 10:38 Oxygen Delivery Me thod Room Air 07/30/24 10:38 MDM - SOB/Dyspnea Medical Decision Making Patient is a 38-year-old female here for lower rib/lung/chest pain along with cough and congestion. He clinically appears in no acute distress. CXR is unremarkable. EKG is nonischemic. Baseline troponin is normal. Vital signs are normal. Blood work overall unremarkable apart from a potassium of 2.8. This has been low previously. She does have a history of bariatric surgery. Her magnesium was normal. Potassium was replaced here with oral and IV. Will place her on oral potassium for the next several days. She will follow-up with her bariatric team in regards to this. Respiratory panel did test positive for entero-/rhinovirus. Conservative therapies discussed. Return to ED precautions given. Medical Records I reviewed the patient's medical records. Lab Data I reviewed the patient's lab results. 07/30/24 09:27 07/30/24 09:27 Labs/Radiology: Radiology Impressions Chest X-Ray 07/30/24 09:12 IMPRESSION: No acute findings. Laboratory Results WBC 3.47 10^3/uL (3.29-11.43) 07/30/24 09: RBC 3.84 10^6/uL (3.85-5.65) L 07/30/24 09: Hgb 11.80 g/dL (11.27-16.99) 07/30/24 09: Hct 35.3 % (36-47) L 07/30/24 09: MCV 91.9 fl (85-98) 07/30/24 09: MCH 30.7 pg (27-33) 07/30/24 09: MCHC 33.4 g/dL (30-55) 07/30/24 09: RDW 14.6 % (12.1-15.1) 07/30/24 09: Plt Count 211 10^3/cmm (157-399) 07/30/24 09: MPV 11.8 fL (7.4-10.4) H 07/30/24 09: Neut % (Auto) 64.8 % 07/30/24 09: Lymph % (Auto) 22.8 % 07/30/24 09:27 Moody % (Auto) 9.8 % 07/30/24 09:27 Eos % (Auto) 1.7 % 07/30/24 09: Baso % (Auto) 0.9 % 07/30/24 09: Neut # (Auto) 2.25 10^3/uL (1.8-7.7) 07/30/24 09: Lymph # (Auto) 0.8 10^3/uL (0.8-4.8) 07/30/24 09:27 Moody # (Auto) 0.3 10^3/uL (0.2-0.9) 07/30/24 09:27 Eos # (Auto) 0.1 10^3/uL (0.0-0.8) 07/30/24 09:27 Baso # (Auto) 0.0 10^3/uL (0.0-0.1) 07/30/24 09:27 Nucleated RBC % (auto) 0 % 07/30/24 09: Nucleated RBCs # 0.0 /100WBC 07/30/24 09:27 Sodium 143 mmol/L (136-145) 07/30/24 09:27 Potassium 2.8 mmol/L (3.5-5.1) L* 07/30/24 09:27 Chloride 112 mmol/L (98-107) H 07/30/24 09:27 Carbon Dioxide 20 mmol/L (22-29) L 07/30/24 09:27 Anion Gap 13.8 (5-19) 07/30/24 09:27 BUN 13 mg/dL (6-20) 07/30/24 09:27 Creatinine 0.6 mg/dL (0.5-0.9) 07/30/24 09:27 GFR Calculation 110.7 mL/min (90-130) 07/30/24 09: Glucose 95 mg/dL (65-115) 07/30/24 09: Calculated Osmolality 296 mOsm/kg (285-295) H 07/30/24 09:27 Calcium 8.6 mg/dL (8.5-10.5) 07/30/24 09: Magnesium 2.1 mg/dL (1.7-2.3) 07/30/24 09:27 Total Bilirubin 0.2 mg/dL (0.15-1.2) 07/30/24 09:27 AST 20 U/L (0-32) 07/30/24 09:27 ALT 18 U/L (0-33) 07/30/24 09:27 Alkaline Phosphatase 60 U/L (35-105) 07/30/24 09:27 Troponin T Baseline < 6 ng/L (0-10) 07/30/24 09:27 Total Protein 6.4 g/dL (6.6-8.7) L 07/30/24 09:27 Albumin 3.7 g/dL (3.5-5.2) 07/30/24 09:27 Globulin 2.7 g/dL (1.3-4.6) 07/30/24 09:27 Lipase 25 U/L (13-60) 07/30/24 09:27 Adenovirus (PCR) Not detected (NOT DETECT) 07/30/24 09:19 C. pneumoniae DNA (PCR) Not detected (NOT DETECT) 07/30/24 09:19 Coronavirus 229E (PCR) Not detected (NOT DETECT) 07/30/24 09:19 Human Metapneumovir PCR Not detected (NOT DETECT) 07/30/24 09:19 Influenza A (H1) PCR Not detected (NOT DETECT) 07/30/24 09:19 Influ A (H1/09) PCR Not detected (NOT DETECT) 07/30/24 09:19 Influenza A (H3) PCR Not detected (NOT DETECT) 07/30/24 09:19 Influenza Type A (PCR) Not detected (NOT DETECT) 07/30/24 09:19 Influenza Type B (PCR) Not detected (NOT DETECT) 07/30/24 09:19 M. pneumoniae (PCR) Not detected (NOT DETECT) 07/30/24 09:19 Parainfluenza 1 (PCR) Not detected (NOT DETECT) 07/30/24 09:19 Parainfluenza 2 (PCR) Not detected (NOT DETECT) 07/30/24 09:19 Parainfluenza 3 (PCR) Not detected (NOT DETECT) 07/30/24 09:19 Parainfluenza 4 (PCR) Not detected (NOT DETECT) 07/30/24 09:19 RSV Type A (PCR) Not detected (NOT DETECT) 07/30/24 09:19 RSV Type B (PCR) Not detected (NOT DETECT) 07/30/24 09:19 Entero/Rhino (PCR) Detected (NOT DETECT) A 07/30/24 09:19 SARS-CoV-2 (PCR) Not detected (NOT DETECT) 07/30/24 09:19 All radiology interpretation(s) finalized by discharge Discharge Plan Discharge Patient Disposition: Home Clinical Impression: Acute hypokalemia, Viral upper respiratory tract infection Condition: Stable Prescriptions: New potassium chloride 20 mEq tablet extended release 20 meq PO BID Qty: 10 0RF No Action topiramate 50 mg tablet 200 mg PO BEDTIME citalopram 40 mg tablet 40 mg PO DAILY omeprazole 20 mg capsule,delayed release(DR/EC) 20 mg PO DAILY ondansetron 4 mg tablet,disintegrating 4 mg PO Q6H PRN (Reason: Nausea) Discharge Orders: Discharge ED (Routine); Ordered 07/30/24 Ordered By: Addie Wilson Referrals: Wilfrido High DO [Primary Care Provider] - Patient Instructions: Hypokalemia (ED), Upper Respiratory Infection (DC) Coding Level of Care Code ED Support Team Assoc for Reema Thomas
--- NOTE | 2024-07-30 09:13 | ECG_ITS ---
[facility] Test Date: 2024-07-30 Pat Name: Talisha Medeiros Department: Room: Gender: Female Inspector Chief: : 1985 Requested By: Addie Wilson Order Number: [id number] Ananya MD: Randy Neal M.D. Measurements Intervals [place] Rate: 62 P: 61 OK: 137 QRS: 39 QRSD: 96 T: 48 QT: 409 QTc: 416 Interpretive Statements SINUS RHYTHM Compared to ECG 05/27/2024 12:35:09 Sinus bradycardia no longer present T-wave abnormality no longer present Electronically Signed On 07-30-2024 11:18:00 CDT by Randy Neal M.D. [id number]
[2024-07-30 09:17] VITALS: BP 137/82; PULSE 68; O2SAT 98
[2024-07-30 09:34] LABS: Basophils % 0.9 %; Eosinophils # 0.1 10^3/uL (0.0-0.8); Eosinophils % 1.7 %; Hematocrit 35.3 % (36-47); Lymphocytes # 0.8 10^3/uL (0.8-4.8); Lymphocytes % 22.8 %; Mean Corpuscular HGB Conc 33.4 g/dL (30-55); Mean Corpuscular Hemoglobin 30.7 pg (27-33); Mean Corpuscular Volume 91.9 fl (85-98); Mean Platelet Volume 11.8 fL (7.4-10.4); Monocytes # 0.3 10^3/uL (0.2-0.9); Monocytes % 9.8 %; Neutrophils # 2.25 10^3/uL (1.8-7.7); Neutrophils % 64.8 %; Nucleated Red Blood Cells % 0 %; Platelet Count 211 10^3/cmm (157-399); Red Blood Count 3.84 10^6/uL (3.85-5.65); Red Cell Distribution Width 14.6 % (12.1-15.1); White Blood Count 3.47 10^3/uL (3.29-11.43)
[2024-07-30 09:55] LABS: Alanine Aminotransferase 18 U/L (0-33); Albumin Level 3.7 g/dL (3.5-5.2); Alkaline Phosphatase 60 U/L (35-105); Anion Gap 13.8 (5-19); Aspartate Amino Transferase 20 U/L (0-32); Blood Urea Nitrogen 13 mg/dL (6-20); Calcium 8.6 mg/dL (8.5-10.5); Carbon Dioxide 20 mmol/L (22-29); Chloride 112 mmol/L (98-107); Globulin 2.7 g/dL (1.3-4.6); Glomerular Filtration Rate 110.7 mL/min (90-130); Glucose 95 mg/dL (65-115); Lipase 25 U/L (13-60); Osmolality Calculated 296 mOsm/kg (285-295); Sodium 143 mmol/L (136-145); Total Bilirubin 0.2 mg/dL (0.15-1.2); Total Protein 6.4 g/dL (6.6-8.7)
[2024-07-30 09:57] LABS: Troponin(5th) Baseline < 6 ng/L (0-10)
[2024-07-30 09:58] LABS: Potassium 2.8 mmol/L (3.5-5.1)
[2024-07-30] MEDS: potassium chloride ER 20 mEq Tablet 40 MEQ PO (10:30)
[2024-07-30] MEDS: lidocaine 1% 5 ML in potassium chloride premix 100 ML 52.5 ML IV (10:32)
[2024-07-30 10:38] VITALS: BP 116/70; PULSE 53; O2SAT 99
[2024-07-30 10:43] LABS: Magnesium 2.1 mg/dL (1.7-2.3)
[2024-07-30 11:18] LABS: Adenovirus Not Detected (NOT DETECT); Chlamydia Pneumoniae Not Detected (NOT DETECT); Coronavirus 229E,HKU1,NL63,OC4 Not Detected (NOT DETECT); Human Metapneumovirus Not Detected (NOT DETECT); Human Rhinovirus/Enterovirus Detected (NOT DETECT); Influenza A Not Detected (NOT DETECT); Influenza A H1 Not Detected (NOT DETECT); Influenza A H1-2009 Not Detected (NOT DETECT); Influenza A H3 Not Detected (NOT DETECT); Influenza B Not Detected (NOT DETECT); Mycoplasma Pneumoniae Not Detected (NOT DETECT); Parainfluenza Virus Type 1 Not Detected (NOT DETECT); Parainfluenza Virus Type 2 Not Detected (NOT DETECT); Parainfluenza Virus Type 3 Not Detected (NOT DETECT); Parainfluenza Virus Type 4 Not Detected (NOT DETECT); Respiratory Syncytial Virus A Not Detected (NOT DETECT); Respiratory Syncytial Virus B Not Detected (NOT DETECT); SARS-COV-2 Not Detected (NOT DETECT)
[2024-07-30 12:28] VITALS: BP 119/81; PULSE 60; RESP 19; O2SAT 100
[2024-07-30 12:41] VITALS: BP 119/81; PULSE 60; O2SAT 100
== END 2024-07-30 12:35 | disposition home or self-care (01) ==
PROVIDERS: Emergency Provider Physician Assistant; PCP Family Medicine
DX: J06.9 Acute upper respiratory infection, unspecified (principal); E87.6 Hypokalemia; Z11.52 Encounter for screening for COVID-19
CPT/HCPCS: 36415; 71045; 80053; 83690; 83735; 84484; 85025; 87486; 87581; 87633; 93005; 96374; 99285; J3480

== ENCOUNTER 2025-07-23 11:58 | Outpatient (CLI) | payer OTHER, SELFPAY ==
--- NOTE | 2025-07-23 12:00 | MM_ITS ---
WS: [id number] BILATERAL 3D TOMOSYNTHESIS DIGITAL SCREENING MAMMOGRAPHY WITH CAD CLINICAL INFORMATION: SCREENING HISTORY: Screening mammogram. No current complaints. COMPARISON: 2023 TECHNIQUE: Bilateral CC and MLO views. FINDINGS: The breasts are composed of heterogeneous fibroglandular density tissue, which can limit the detection of small underlying mass lesions. No suspicious mass, asymmetry, calcifications, or architectural distortion. No evidence of malignancy. Incidental benign calcifications. MM/MM [facility] tomosynthesis [id number] IMPRESSION: DENSITY: The breasts are heterogeneously dense, which may obscure small masses. BI-RADS: 2 - Benign FOLLOW UP: 1 Year Follow-up Recommend return to annual screening mammography.
== END 2025-07-23 11:59 | disposition home or self-care (01) ==
LOC: MOBLMAM 11:59
PROVIDERS: PCP Family Medicine; Visit Provider Family Medicine
DX: Z12.31 Encounter for screening mammogram for malignant neoplasm of breast (principal); R92.333 Mammographic heterogeneous density, bilateral breasts
CPT/HCPCS: 77063; 77067